=== PATIENT | female | born 1950 | race Caucasian/White ===

== ENCOUNTER 2018-11-04 07:03 | Day surgery (SDC) | payer OTHER ==
--- OUTSIDE RECORDS SUMMARY | 2018-11-04 07:08 | XMS REPORT ---
:1950 Author Organization [employer] Care Team Providers Name Role Phone Tani Franco Provider Role Unavailable Allergies, Adverse Reactions, Alerts Substance Reaction Event Type penicillin Info Not Available Drug Allergy Tetracycline HCl Info Not Available Drug Allergy Problems Problem Type Condition Code Onset Dates Condition Status Assessment Well woman exam Z01.419 Active Assessment Encounter for gynecological Z01.419 Active examination without abnormal finding Assessment Encounter for screening mammogram Z12.31 Active for breast cancer Medications Medication Code System Code Instructions Start Date End Date Status Dosage Lisinopril [facility] [id number] Active not defined -01 Results Name Result Date Reference Range Unit Abnormality Flag URINALYSIS AUTO W/O SCOPE (92683) ----NIT Neg 20180101 ----URO 0.2 20180101 ----PROTEIN Neg 20180101 ----pH 7.0 20180101 ----BLO Neg 20180101 ----GLUCOSE Neg 20180101 ----LALY Neg 20180101 ----BILIRUBIN Neg 20180101 ----KETONES Neg 20180101 ----SPECIFIC GRAVITY 1.020 20180101 Summary Purpose eClinicalWorks Submission
[2018-11-04] MEDS ORDERED: CYCLOPENTOLATE 1% OPTH 2 ML ONE (07:26)
[2018-11-04] MEDS ORDERED: BUPIVACAINE 0.25% PF 10 ML VIAL ONE (07:26)
[2018-11-04] MEDS ORDERED: LIDOCAINE 2% MPF 5 ML VIAL ONE ×2 (07:26→08:30)
[2018-11-04] MEDS ORDERED: NA CHLORIDE 0.9% 500 ML ONE (07:27)
[2018-11-04] MEDS ORDERED: TETRACAINE HCL 0.5% 4ML OPTH ONE (07:27)
[2018-11-04] MEDS ORDERED: PHENYLEPHRINE 10% OPTH 5ML ONE (07:27)
[2018-11-04] MEDS ORDERED: CYCLOPENTOLATE 1% OPTH 2 ML OPTH ONE ×2 (07:33→07:38)
[2018-11-04] MEDS ORDERED: PHENYLEPHRINE 10% OPTH 5ML OPTH ONE ×2 (07:33→07:38)
[2018-11-04] MEDS ORDERED: EPINEPHRINE/PF 1 MG/ML AMP ONE (08:17)
[2018-11-04] MEDS ORDERED: NS 0.9% VIAL 10 ML ONE (08:17)
[2018-11-04] MEDS ORDERED: DUOVISC 1 KIT OPTH ONE (08:18)
[2018-11-04] MEDS ORDERED: MOXIFLOXACIN HCL 10 DROPS/ML **OR USE OPTH ONE (08:18)
[2018-11-04] MEDS ORDERED: BALANCED SALT IRRIG PLAIN 500 ML BTL IRR ONE (08:18)
[2018-11-04] MEDS ORDERED: PROPOFOL 200 MG/20 ML VIAL IV ONE (08:30)
--- NOTE | 2018-11-04 09:07 | P.BOP ---
Preoperative diagnosis: NS, cortical, PSC cataract and regular astigmatism OD Postoperative diagnosis: Same Primary procedure: Phacoemulsification with Toric IOL OD Estimated blood loss: None Anesthesia: Local (Subtenon's infusion with anesthesia for cataract surgery) Complications: None Implants: [id number] +21.0 @ 156 Transferred to: Other (Day surgery) Condition: Good
--- NOTE | 2018-11-04 12:00 | OP ---
Date of Procedure: 11/04/2018 Surgeon: Margarita Burton MD Anesthesiologist: Britt Mccabe CRNA and Ismael Jara MD. Preoperative Diagnosis: Nuclear sclerotic, cortical and posterior subcapsular cataract and regular astigmatism OD (right eye). Operation Performed: Phacoemulsification with Toric intraocular lens implant, right eye. Anesthesia: Per cataract surgery. Complications: None. Description Of Procedure: In day surgery, the patient was prepped with Betadine and draped. A conjunctival incision was made in the inferior nasal quadrant with Adrián scissors. A sub-Tenon block consisting of a 1:1 mixture of 2% Xylocaine and 0.25% bupivacaine was placed through the conjunctival incision with a blunt cannula. A Honan balloon was placed over the eye and the patient was transferred to the operating room. In the operating room the patient was prepped and draped in the usual sterile fashion for ophthalmic surgery. A lid speculum was placed in the right eye. Two paracentesis sites were made superiorly and inferiorly in the limbal cornea. Viscoat was placed in the anterior chamber and a crescent blade was used to make a corneal groove and tunnel, and a keratome was used to enter the anterior chamber. Provisc was placed in the anterior chamber and a 360 degree capsulotomy was performed with a cystitome. The lens was hydrodissected with BSS and rotated freely. The lens was removed with a stop and chop technique. 9.28 phaco CDE was used to remove the lens. Residual cortex was removed with the irrigation and aspiration. Provisc was placed in the capsular bag. A [id number] +21.0 at 156 degrees lens was placed in the capsular bag without complications. Irrigation and aspiration was used to remove residual viscoelastic. The paracentesis sites were hydrated with BSS. The wound and paracentesis sites were inspected and found to be watertight. Vigamox 0.07 cc was placed intracamerally at the end of the procedure. The eye was irrigated with balanced salt solution. The eye was patched with a soft cotton patch and Rosa metal shield. The patient was returned to day surgery in good condition. Comments: The lens was slightly loose and a conjunctiva incision was made temporally due to ballooning of anesthesia. Discharge Instructions: Ms. Arguello is discharged to home in good condition and is to follow up with Dr. Leidlein in the morning. VANDANA/HENRY Voice ID: [id number] Report ID: [id number] LONNY
== END 2018-11-04 09:51 | disposition home or self-care (01) ==
LOC: OR 07:03
PROVIDERS: ATTEND Ophthalmology Retina Specialist
PROC: 08RJ3JZ Replacement of Right Lens with Synthetic Substitute, Percutaneous Approach (ICD-10-PCS; principal; 2018-11-04 08:30)
DX: H25.11 Age-related nuclear cataract, right eye (principal); H25.041 Posterior subcapsular polar age-related cataract, right eye; H25.011 Cortical age-related cataract, right eye; H52.221 Regular astigmatism, right eye; E11.319 Type 2 diabetes mellitus with unspecified diabetic retinopathy without macular edema; I10 Essential (primary) hypertension; E07.9 Disorder of thyroid, unspecified; Z88.0 Allergy status to penicillin; Z88.1 Allergy status to other antibiotic agents; Z88.6 Allergy status to analgesic agent
CPT/HCPCS: 82962 ×2; 66984; J2704; J0171; V2630; V2787

== ENCOUNTER 2023-04-08 10:15 | Emergency (ER) | payer OTHER ==
--- OUTSIDE RECORDS SUMMARY | 2023-04-08 10:19 | XMS REPORT | Continuity of Care Document ---
:1950 Author Organization [facility] t Address [address] [facility] [place] [address] Care Team Providers Name Role Phone Dandy Gardner Attending Clinician Unavailable Jannette Attending Clinician Unavailable Twyla Attending Clinician Unavailable FOG_A_Provider Attending Clinician Unavailable Lula Chapman Attending Clinician Unavailable Jannette Admitting Clinician Unavailable Twyla Admitting Clinician Unavailable FOG_A_Provider Admitting Clinician Unavailable UNDEFINED Admitting Clinician Unavailable Payers Payer Name Policy Type Policy Number Effective Date Expiration Date Stephanie saravanan SANIYA (MEDICARE [id number] 2022 REPLACEMENT PPO) 00:00:00 MEDICARE B-[place]: [id number] 2014 [employer]AS [employer]IONS 00:00:00 AETNA [id number] 2000 2022 00:00:00 00:00:00 COVID VACCINE ADMIN [id number] 2020-06-28 / TESTING 00:00:00 MEDICARE-PA [id number] 2014-11-02 (MEDICARE) 00:00:00 Problems Condition Condition Condition Status Onset Resolution Last Treating Co mments Source Name Details Category Date Date Treatment Clinician Date Proliferat Proliferat Problem Active 2023-0 [facility] tam tam 6-02 Family retinopath Retinopath 00:00: Pr actic y y 00 e Senile Senile Problem Active [facility] purpura Purpura 2-21 Family 00:00: Practic 00 e Osteoarthr Osteoarthr Problem Active [facility] [place] it[facility] of itis of 2-10 Orthope left knee Left Knee 00:00: dic joint Joint 00 Sports Medicin e 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 [facility] rative rative 00:00: Practic retinopath Retinopath 00 e y due to y Due to diabetes Diabetes mellitus Mellitus Macular Macular Problem Active [facility] edema of Edema of 8-02 Family left eye Left Eye 00:00: Practi c due to Due to 00 e diabetes Diabetes mellitus Mellitus Syncope Syncope Problem Active [facility] 2-18 Family 00:00: Practic 00 e Body mass Body Mass Problem Active Ganesh preston index Index 2-18 Family 20-24 - 20-24 - 00:00: Practic normal Normal 00 e Dysuria Dysuria Problem Active 2020-06 [facility] 0-13 Family 00:00: Practic 00 e Type 2 Type 2 Problem Active [facility] diabetes Diabetes 7-20 Family mellitus Mellitus 00:00: Practi c 00 e Leukopenia Leukopenia Problem Active [facility] 7-11 Family 00:00: Practic 00 e Secondary Secondary Problem Active Ganesh preston polycythem Polycythem 7-11 [facility] ia ia 00:00: Practic 00 e Hypoglycem Hypoglycem Problem Active [facility] ia ia 4-16 Family 00:00: Practic 00 e Overweight Overweight Problem Active [facility] 4-17 Family 00:00: Practic 00 e Hypothyroi Hypothyroi Problem Active [facility] dism dism 1-11 Family 00:00: Practic 00 e Hyperlipid Hyperlipid Problem Active [facility] emia emia 1-11 Family 00:00: Practic 00 e Essential Essential Problem Active Ganesh preston hypertensi Hypertensi 1-11 [facility] on on 00:00: Practic 00 e Vitamin Vitamin Problem Active [facility] deficiency Deficiency 1-11 [facility] 00:00: Practic 00 e Hypertensi Hypertensi Problem Active [facility] ve ve 1-11 Family disorder Disorder 00:00: Practi c 00 e Encounter Encounter Diagnosis [facility] tayler tayler examinatio examinatio [facility] n without n without Medi tayler abnormal abnormal Center finding finding Encounter Encounter Diagnosis Active [facility] screening screening - [facility] I mammogram mammogram for breast for breast [facility] cancer cancer [facility] Allergies, Adverse Reactions, Alerts Allergy Allergy Status Severity Reaction(s) Onset Inactive Treating Comm ents Source Name Type Date Date Clinician Penicill DA Active U 2020-0 [facility] ins 5-24 Clear 00:00: Nur 00 [facility] Tetracyc DA Active U 2020-0 [facility] lines 5-24 Clear 00:00: Nur 00 [facility] codeine DA Active SV 2020-0 [facility] 5-24 Clear 00:00: Nur 00 [facility] Penicill DA Active U RASH 2020-0 [facility] ins 5-24 [place] 00:00: d [address] [facility] Tetracyc DA Active U HIVES 2020-0 [facility] lines 5-24 [place] 00:00: d [address] [facility] codeine DA Active SV NAUSEA/VOMIT 2020-0 [facility] ING 5-24 [place] 00:00: d [address] [facility] penicill Adverse Active Info Not Commo n in Reaction Available [facility] Tetracyc Adverse Active Info Not Commo n line HCl Reaction Available [facility] Codeine Allergy Active [facility] to Family substanc Practic e e PENICILL Allergy Active Anaphylaxis [facility] INS to Family substanc Practic e e Tetracyc Allergy Active Anaphylaxis [facility] line to Family substanc Practic e e Social History Social Habit Start Date Stop Date Quantity Comments Source Sex Ass[birth year] At [birth year] [facility] 00:00:00 00:00:[address] [facility] Smoking Status Start Date Stop Date Source Never Smoker [facility] Medications Ordered Filled Start Stop Current Ordering Indication Dosage Frequency Signature Comments Components Source Medication Medication Date Date Medication? Clinician (SIG) Name Name Lisinopril Lisinopril Yes Tani not Common Rekhi defined [facility] Accu-Chek Accu-Chek No 2strip( Q1D Accu-Chek [facility] Guide test Guide test s) Guide test Family strips Take strips Take strips Practic 2 strips 2 strips Take 2 e every day every day strips by miscell. by miscell. every day route for route for by 90 days. 90 days. miscell. route for 90 days. calcium calcium No calcium [facility] Co Q-10 100 Co Q-10 100 No Co Q-10 [facility] mg capsule mg capsule 100 mg F amily Take by Take by capsule Practi c oral route. oral route. Take by e oral route. desonide desonide No desonide Ganesh mohan 0.05 % 0.05 % 0.05 % Family topical topical topical Practi c ointment ointment ointment e APPLY APPLY APPLY SPARINGLY SPARINGLY SPARINGLY AND RUB AND RUB AND RUB GENTLY INTO GENTLY INTO GENTLY THE THE INTO THE AFFECTED AFFECTED AFFECTED AREA(S) BY AREA(S) BY AREA(S) BY TOPICAL TOPICAL TOPICAL ROUTE 2 ROUTE 2 ROUTE 2 TIMES PER TIMES PER TIMES PER DAY DAY DAY Dexcom G6 Dexcom G6 No Dexcom G6 [facility] Sensor Sensor Sensor Family Practic e estradiol estradiol No estradiol [facility] 0.01% (0.1 0.01% (0.1 0.01% (0.1 Family mg/gram) mg/gram) mg/gram) Pra ctic vaginal vaginal vaginal e cream cream cream hydrocodone hydrocodone No hydrocodon [facility] 5 5 e 5 Family mg-acetamin mg-acetamin mg-acetami Practic ophen 325 ophen 325 nophen 325 e mg tablet mg tablet mg tablet TAKE 1 TO 2 TAKE 1 TO 2 TAKE 1 TO TABLETS BY TABLETS BY 2 TABLETS MOUTH EVERY MOUTH EVERY BY MOUTH 6 HOURS FOR 6 HOURS FOR EVERY 6 PAIN. MAX PAIN. MAX HOURS FOR DOSE OF 6 DOSE OF 6 PAIN. MAX TABLETS TABLETS DOSE OF 6 TABLETS levothyroxi levothyroxi levothyrox [facility] ne 75 mcg ne 75 mcg ine 75 mcg Family tablet TAKE tablet TAKE tablet Practic 1 TABLET BY 1 TABLET BY TAKE 1 e MOUTH EVERY MOUTH EVERY TABLET BY DAY DAY MOUTH EVERY DAY pravastatin pravastatin No pravastati [facility] 40 mg 40 mg n 40 mg Family tablet TAKE tablet TAKE tablet Practic 1 TABLET BY 1 TABLET BY TAKE 1 e MOUTH MOUTH TABLET BY EVERYDAY AT EVERYDAY AT MOUTH BEDTIME BEDTIME EVERYDAY AT BEDTIME repaglinide repaglinide No 1 TID repaglinid [facility] 1 mg tablet 1 mg tablet e 1 mg Family Take 1 Take 1 tablet Practic tablet 3 tablet 3 Take 1 e times a day times a day tablet 3 by oral by oral times a route for route for day by 30 days. 30 days. oral route for 30 days. Sutab Sutab No Sutab [facility] 1.479-0.188 1.479-0.188 1.479-0.18 Family -0.225 gram -0.225 gram 8-0.225 Practic tablet tablet gram e tablet Trijardy XR Trijardy XR No Trijardy [facility] 25 mg-5 25 mg-5 XR 25 mg-5 Fam cynthia mg-1,000 mg mg-1,000 mg mg-1,000 Practic tablet, tablet, mg tablet, e extended extended extended release release release TAKE 1 TAKE 1 TAKE 1 TABLET BY TABLET BY TABLET BY MOUTH EVERY MOUTH EVERY MOUTH DAY IN THE DAY IN THE EVERY DAY MORNING MORNING IN THE MORNING Trulicity Trulicity No ulicity [facility] 0.75 mg/0.5 0.75 mg/0.5 0.75 F amily mL mL mg/0.5 mL Practic subcutaneou subcutaneou subcutaneo e s pen s pen us pen injector injector injector INJECT INJECT INJECT 0.75MG 0.75MG 0.75MG SUBCUTANEOU SUBCUTANEOU SUBCUTANEO SLY ONE SLY ONE USLY ONE TIME PER TIME PER TIME PER WEEK WEEK WEEK Vascepa 1 Vascepa 1 No Vascepa 1 Village gram gram gram Family capsule capsule capsule Practi c TAKE 2 TAKE 2 TAKE 2 e CAPSULES BY CAPSULES BY CAPSULES MOUTH TWICE MOUTH TWICE BY MOUTH A DAY A DAY TWICE A DAY Yuvafem 10 Yuvafem 10 No Yuvafem 10 [facility] mcg vaginal mcg vaginal mcg F amily tablet USE tablet USE vaginal Practic 1 TABLET 1 TABLET tablet USE e VAGINALLY VAGINALLY 1 TABLET TWICE TWICE VAGINALLY WEEKLY WEEKLY TWICE WEEKLY Accu-Chek Accu-Chek No 2strip( Q1D AccuChek [facility] Guide test Guide test s) Guide test Family strips Take strips Take strips Practic 2 strips 2 strips Take 2 e every day every day strips by miscell. by miscell. every day route for route for by 90 days. 90 days. miscell. route for 90 days. Accu-Chek Accu-Chek No Accu-Chek [facility] Softclix Softclix Softclix Fam cynthia Lancets USE Lancets USE Lancets Practic DIRECTED DIRECTED USE e TWICE A DAY TWICE A DAY DIRECTED TWICE A DAY calcium calcium No calcium [facility] Family Practic e Co Q-10 100 Co Q-10 100 No Co Q-10 [facility] mg capsule mg capsule 100 mg F amily Take by Take by capsule Practi c oral route. oral route. Take by e oral route. desonide desonide No desonide Ganesh mohan 0.05 % 0.05 % 0.05 % [facility] topical topical topical Practi c ointment ointment ointment e APPLY TO APPLY TO APPLY TO AFFECTED AFFECTED AFFECTED AREAS FOR AREAS FOR AREAS FOR SHORT SHORT SHORT PERIODS PERIODS PERIODS (STEROID) (STEROID) (STEROID) Dexcom G6 Dexcom G6 No Dexcom G6 [facility] Sensor Sensor Sensor Family Practic e estradiol estradiol No estradiol [facility] 0.01% (0.1 0.01% (0.1 0.01% (0.1 Family mg/gram) mg/gram) mg/gram) Pra ctic vaginal vaginal vaginal e cream cream cream hydrocodone hydrocodone No hydrocodon [facility] 5 5 e 5 Family mg-acetamin mg-acetamin mg-acetami Practic ophen 325 ophen 325 nophen 325 e mg tablet mg tablet mg tablet TAKE 1 TO 2 TAKE 1 TO 2 TAKE 1 TO TABLETS BY TABLETS BY 2 TABLETS MOUTH EVERY MOUTH EVERY BY MOUTH 6 HOURS FOR 6 HOURS FOR EVERY 6 PAIN. MAX PAIN. MAX HOURS FOR DOSE OF 6 DOSE OF 6 PAIN. MAX TABLETS TABLETS DOSE OF 6 TABLETS Angelic At[place] No Lyumbernardov [facility] KwikPen KwtaniaPen KwikPen Family U-100 U-100 U-100 Practic Insulin 100 Insulin 100 Insulin e unit/mL unit/mL 100 subcutaneou subcutaneou unit/mL s Give s Give subcutaneo before before us Give meals for meals for before glucose glucose meals for >200 using >200 using glucose CF 1:40; CF 1:40; >200 using TDD 30 TDD 30 CF 1:40; TDD 30 meloxicam meloxicam meloxicam [facility] 7.5 mg 7.5 mg 7.5 mg Family tablet TAKE tablet TAKE tablet Practic 1 TABLET BY 1 TABLET BY TAKE 1 e MOUTH TWICE MOUTH TWICE TABLET BY DAILY WITH DAILY WITH MOUTH MEALS FOR MEALS FOR TWICE 14 DAYS 14 DAYS DAILY WITH MEALS FOR 14 DAYS pravastatin [facility]ravastatin [facility] 40 [facility] 40 mg n 40 mg Family tablet TAKE tablet TAKE tablet Practic 1 TABLET BY 1 TABLET BY TAKE 1 e MOUTH MOUTH TABLET BY EVERYDAY AT EVERYDAY AT MOUTH BEDTIME BEDTIME EVERYDAY AT BEDTIME repaglinide repaglinide No 1 TID repaglinid [facility] 1 mg tablet 1 mg tablet e 1 mg Family Take 1 Take 1 tablet Practic tablet 3 tablet 3 Take 1 e times a day times a day tablet 3 by oral by oral times a route for route for day by 90 days. 90 days. oral route for 90 days. Sutab Sutab No Sutab [facility] 1.479-0.188 1.479-0.188 1.479-0.18 Family -0.225 gram -0.225 gram 8-0.225 Practic tablet tablet gram e tablet Synthroid Synthroid No Synthroid [facility] 75 mcg 75 mcg 75 mcg Family tablet TAKE tablet TAKE tablet Practic 1 TABLET BY 1 TABLET BY TAKE 1 e MOUTH EVERY MOUTH EVERY TABLET BY DAY IN THE DAY IN THE MOUTH MORNING ON MORNING ON EVERY DAY AN EMPTY AN EMPTY IN THE STOMACH STOMACH MORNING ON AN EMPTY STOMACH Trijardy XR Trijardy XR No [facility] 25 mg-5 25 mg-5 XR 25 mg-5 Fam cynthia mg-1,000 mg mg-1,000 mg mg-1,000 Practic tablet, tablet, mg tablet, e extended extended extended release release release TAKE 1 TAKE 1 TAKE 1 TABLET BY TABLET BY TABLET BY MOUTH EVERY MOUTH EVERY MOUTH DAY IN THE DAY IN THE EVERY DAY MORNING MORNING IN THE MORNING Trulicity Trulicity No 1.5mg Q1W Trulicity [facility] 1.5 mg/0.5 1.5 mg/0.5 1.5 mg/0.5 Family mL mL mL Practic subcutaneou subcutaneou subcutaneo e s pen s pen us pen injector injector injector Inject 1.5 Inject 1.5 Inject 1.5 mg every mg every mg every week by week by week by subcutaneou subcutaneou subcutaneo s route for s route for us route 90 days. 90 days. for 90 days. Vascepa 1 Vascepa 1 No Vascepa 1 [facility] gram gram gram Family capsule capsule capsule Practi c TAKE 2 TAKE 2 TAKE 2 e CAPSULES BY CAPSULES BY CAPSULES MOUTH TWICE MOUTH TWICE BY MOUTH A DAY A DAY TWICE A DAY Yuvafem 10 Yuvafem 10 No Yuvafem 10 [facility] mcg vaginal mcg vaginal mcg F amily tablet USE tablet USE vaginal Practic 1 TABLET 1 TABLET tablet USE e VAGINALLY VAGINALLY 1 TABLET TWICE TWICE VAGINALLY WEEKLY WEEKLY TWICE WEEKLY Accu-Chek Accu-Chek No 2strip( Q1D Accu-Chek [facility] Guide test Guide test s) Guide test Family strips Take strips Take strips Practic 2 strips 2 strips Take 2 e every day every day strips by miscell. by miscell. every day route for route for by 90 days. 90 days. miscell. route for 90 days. Accu-Chek Accu-Chek No Accu-Chek [facility] Softclix Softclix Softclix Fam cynthia Lancets USE Lancets USE Lancets Practic DIRECTED DIRECTED USE e TWICE A DAY TWICE A DAY DIRECTED TWICE A DAY calcium calcium No calcium [facility] Co Q-10 100 Co Q-10 100 No Co Q-10 [facility] mg capsule mg capsule 100 mg F amily Take by Take by capsule Practi c oral route. oral route. Take by e oral route. desonide desonide No desonide Ganesh mohan 0.05 % 0.05 % 0.05 % [facility] topical topical topical Practi c ointment ointment ointment e APPLY TO APPLY TO APPLY TO AFFECTED AFFECTED AFFECTED AREAS FOR AREAS FOR AREAS FOR SHORT SHORT SHORT PERIODS PERIODS PERIODS (STEROID) (STEROID) (STEROID) Dexcom G6 Dexcom G6 No Dexcom G6 [facility] Sensor Sensor Sensor Family Practic e estradiol estradiol No estradiol [facility] 0.01% (0.1 0.01% (0.1 0.01% (0.1 Family mg/gram) mg/gram) mg/gram) Pra ctic vaginal vaginal vaginal e cream cream cream hydrocodone hydrocodone No hydrocodon [facility] 5 5 e 5 Family mg-acetamin mg-acetamin mg-acetami Practic ophen 325 ophen 325 nophen 325 e mg tablet mg tablet mg tablet TAKE 1 TO 2 TAKE 1 TO 2 TAKE 1 TO TABLETS BY TABLETS BY 2 TABLETS MOUTH EVERY MOUTH EVERY BY MOUTH 6 HOURS FOR 6 HOURS FOR EVERY 6 PAIN. MAX PAIN. MAX HOURS FOR DOSE OF 6 DOSE OF 6 PAIN. MAX TABLETS TABLETS DOSE OF 6 TABLETS Lyumjev Lyumjev No Lyumjev Villag e Farzad Panda Family U-100 U-100 U-100 Practic Insulin 100 Insulin 100 Insulin e unit/mL unit/mL 100 subcutaneou subcutaneou unit/mL s CAR STORER s CAR STORER subcutaneo BEFORE BEFORE us CAR STORER MEALS FOR MEALS FOR BEFORE GLUCOSE GLUCOSE MEALS FOR GREATER GREATER GLUCOSE THAN 200. THAN 200. GREATER MAX 30 MAX 30 THAN 200. UNITS PER UNITS PER MAX 30 DAY. DAY. UNITS PER DAY. meloxicam meloxicam meloxicam [facility] 7.5 mg 7.5 mg 7.5 mg Family tablet TAKE tablet TAKE tablet Practic 1 TABLET BY 1 TABLET BY TAKE 1 e MOUTH TWICE MOUTH TWICE TABLET BY DAILY WITH DAILY WITH MOUTH MEALS FOR MEALS FOR TWICE 14 DAYS 14 DAYS DAILY WITH MEALS FOR 14 DAYS [facility]ravastatin [facility] 40 mg n 40 mg Family tablet TAKE tablet TAKE tablet Practic 1 TABLET BY 1 TABLET BY TAKE 1 e MOUTH MOUTH TABLET BY EVERYDAY AT EVERYDAY AT MOUTH BEDTIME BEDTIME EVERYDAY AT BEDTIME repaglinide repaglinide No 1 TID repaglinid [facility] 1 mg tablet 1 mg tablet e 1 mg Family Take 1 Take 1 tablet Practic tablet 3 tablet 3 Take 1 e times a day times a day tablet 3 by oral by oral times a route for route for day by 90 days. 90 days. oral route for 90 days. Sutab Sutab Sutab [facility] 1.479-0.188 1.479-0.188 1.479-0.18 Family -0.225 gram -0.225 gram 8-0.225 Practic tablet tablet gram e tablet Synthroid Synthroid Synthroid [facility] 75 mcg 75 mcg 75 mcg Family tablet TAKE tablet TAKE tablet Practic 1 TABLET BY 1 TABLET BY TAKE 1 e MOUTH EVERY MOUTH EVERY TABLET BY DAY IN THE DAY IN THE MOUTH MORNING ON MORNING ON EVERY DAY AN EMPTY AN EMPTY IN THE STOMACH STOMACH MORNING ON AN EMPTY STOMACH Trijardy XR Trijardy XR Trijardy [facility] 25 mg-5 25 mg-5 XR 25 mg-5 Fam cynthia mg-1,000 mg mg-1,000 mg mg-1,000 Practic tablet, tablet, mg tablet, e extended extended extended release release release TAKE 1 TAKE 1 TAKE 1 TABLET BY TABLET BY TABLET BY MOUTH EVERY MOUTH EVERY MOUTH DAY IN THE DAY IN THE EVERY DAY MORNING MORNING IN THE MORNING Trulicity Trulicity No 1.5mg Q1W Trulicity [facility] 1.5 mg/0.5 1.5 mg/0.5 1.5 mg/0.5 [facility] mL mL mL Practic subcutaneou subcutaneou subcutaneo e s pen s pen us pen injector injector injector Inject 1.5 Inject 1.5 Inject 1.5 mg every mg every mg every week by week by week by subcutaneou subcutaneou subcutaneo s route for s route for us route 90 days. 90 days. for 90 days. Vascepa 1 Vascepa 1 No Vascepa 1 [facility] gram gram gram Family capsule capsule capsule Practi c TAKE 2 TAKE 2 TAKE 2 e CAPSULES BY CAPSULES BY CAPSULES MOUTH TWICE MOUTH TWICE BY MOUTH A DAY A DAY TWICE A DAY Yuvafem 10 Yuvafem 10 No Yuvafem 10 [facility] mcg vaginal mcg vaginal mcg F amily tablet USE tablet USE vaginal Practic 1 TABLET 1 TABLET tablet USE e VAGINALLY VAGINALLY 1 TABLET TWICE TWICE VAGINALLY WEEKLY WEEKLY TWICE WEEKLY Accu-Chek Accu-Chek No Accu-Chek [facility] Guide test Guide test Guide test Family strips USE strips USE strips USE Practic 2 STRIPS 2 STRIPS 2 STRIPS e EVERY DAY EVERY DAY EVERY DAY BY MISCELL BY MISCELL BY MISCELL ROUTE ROUTE ROUTE Accu-Chek Accu-Chek No Accu-Chek [facility] Softclix Softclix Softclix Fam cynthia Lancets USE Lancets USE Lancets Practic TWICE DAILY TWICE DAILY USE TWICE e DAILY DIRECTED. DIRECTED. DIRECTED. calcium calcium No calcium [facility] Co Q-10 100 Co Q-10 100 No Co Q-10 [facility] mg capsule mg capsule 100 mg F amily Take by Take by capsule Practi c oral route. oral route. Take by e oral route. desonide desonide No desonide Ganesh mohan 0.05 % 0.05 % 0.05 % [facility] topical topical topical Practi c ointment ointment ointment e APPLY TO APPLY TO APPLY TO AFFECTED AFFECTED AFFECTED AREAS FOR AREAS FOR AREAS FOR SHORT SHORT SHORT PERIODS PERIODS PERIODS (STEROID) (STEROID) (STEROID) Dexcom G6 Dexcom G6 No Dexcom G6 [facility] Sensor Sensor Sensor Family Practic e estradiol estradiol No estradiol [facility] 0.01% (0.1 0.01% (0.1 0.01% (0.1 Family mg/gram) mg/gram) mg/gram) Pra ctic vaginal vaginal vaginal e cream cream cream hydrocodone hydrocodone No hydrocodon [facility] 5 5 e 5 Family mg-acetamin mg-acetamin mg-acetami Practic ophen 325 ophen 325 nophen 325 e mg tablet mg tablet mg tablet TAKE 1 TO 2 TAKE 1 TO 2 TAKE 1 TO TABLETS BY TABLETS BY 2 TABLETS MOUTH EVERY MOUTH EVERY BY MOUTH 6 HOURS FOR 6 HOURS FOR EVERY 6 PAIN. MAX PAIN. MAX HOURS FOR DOSE OF 6 DOSE OF 6 PAIN. MAX TABLETS TABLETS DOSE OF 6 TABLETS meloxicam meloxicam meloxicam [facility] 7.5 mg 7.5 mg 7.5 mg Family tablet TAKE tablet TAKE tablet Practic 1 TABLET BY 1 TABLET BY TAKE 1 e MOUTH TWICE MOUTH TWICE TABLET BY DAILY WITH DAILY WITH MOUTH MEALS FOR MEALS FOR TWICE 14 DAYS 14 DAYS DAILY WITH MEALS FOR 14 DAYS nystatin-tr nystatin-tr No nystatin-t [facility] 100,000 100,000 ne 100,000 Pra ctic unit/g-0.1 unit/g-0.1 unit/g-0.1 e % topical % topical % topical cream APPLY cream APPLY cream RECTALLY TO RECTALLY TO APPLY THE THE RECTALLY AFFECTED AFFECTED TO THE AREA TWICE AREA TWICE AFFECTED DAILY FOR DAILY FOR AREA TWICE 10 DAYS 10 DAYS DAILY FOR 10 DAYS pravastatin pravastatin [facility] 40 mg 40 mg n 40 mg Family tablet TAKE tablet TAKE tablet Practic 1 TABLET BY 1 TABLET BY TAKE 1 e MOUTH MOUTH TABLET BY EVERYDAY AT EVERYDAY AT MOUTH BEDTIME BEDTIME EVERYDAY AT BEDTIME Prescriptio Prescriptio [facility] - Renewal n - Renewal on - F amily Renewal Practic e repaglinide repaglinide No 1 TID repaglinid [facility] 1 mg tablet 1 mg tablet e 1 mg Family Take 1 Take 1 tablet Practic tablet 3 tablet 3 Take 1 e times a day times a day tablet 3 by oral by oral times a route for route for day by 90 days. 90 days. oral route for 90 days. Sutab Sutab No Sutab [facility] 1.479-0.188 1.479-0.188 1.479-0.18 Family -0.225 gram -0.225 gram 8-0.225 Practic tablet tablet gram e tablet Synthroid Synthroid No Synthroid [place] 75 mcg 75 mcg 75 mcg Family tablet TAKE tablet TAKE tablet Practic 1 TABLET BY 1 TABLET BY TAKE 1 e MOUTH EVERY MOUTH EVERY TABLET BY DAY IN THE DAY IN THE MOUTH MORNING ON MORNING ON EVERY DAY AN EMPTY AN EMPTY IN THE STOMACH STOMACH MORNING ON AN EMPTY STOMACH Trijardy XR Trijardy XR No Trijardy [facility] 25 mg-5 25 mg-5 XR 25 mg-5 Fam cynthia mg-1,000 mg mg-1,000 mg mg-1,000 Practic tablet, tablet, mg tablet, e extended extended extended release release release TAKE 1 TAKE 1 TAKE 1 TABLET BY TABLET BY TABLET BY MOUTH EVERY MOUTH EVERY MOUTH DAY IN THE DAY IN THE EVERY DAY MORNING MORNING IN THE MORNING Trulicity Trulicity No 1.5mg Q1W Trulicity [facility] 1.5 mg/0.5 1.5 mg/0.5 1.5 mg/0.5 Family mL mL mL Practic subcutaneou subcutaneou subcutaneo e s pen s pen us pen injector injector injector Inject 1.5 Inject 1.5 Inject 1.5 mg every mg every mg every week by week by week by subcutaneou subcutaneou subcutaneo s route for s route for us route 90 days. 90 days. for 90 days. Vascepa 1 Vascepa 1 No Vascepa 1 Village gram gram gram Family capsule capsule capsule Practi c TAKE 2 TAKE 2 TAKE 2 e CAPSULES BY CAPSULES BY CAPSULES MOUTH TWICE MOUTH TWICE BY MOUTH A DAY A DAY TWICE A DAY Yuvafem 10 Yuvafem 10 No Yuvafem 10 [facility] mcg vaginal mcg vaginal mcg F amily tablet USE tablet USE vaginal Practic 1 TABLET 1 TABLET tablet USE e VAGINALLY VAGINALLY 1 TABLET TWICE TWICE VAGINALLY WEEKLY WEEKLY TWICE WEEKLY Accu-Chek Accu-Chek No Accu-Chek Sari Guide test Guide test Guide test Orthope strips TAKE strips TAKE strips dic 2 STRIPS 2 STRIPS TAKE 2 Sport s EVERY DAY EVERY DAY STRIPS Med icin BY MISCELL. BY MISCELL. EVERY DAY e ROUTE FOR ROUTE FOR BY 90 DAYS. 90 DAYS. MISCELL. ROUTE FOR 90 DAYS. Accu-Chek Accu-Chek No Accu-Chek Sari Softclix Softclix Softclix Ort hope Lancets USE Lancets USE Lancets dic DIRECTED DIRECTED USE Sports TWICE A DAY TWICE A DAY DIRECTED Medicin TWICE A e DAY desonide desonide No desonide Aza may 0.05 % 0.05 % 0.05 % Orthope topical topical topical dic ointment ointment ointment Spo rts APPLY TO APPLY TO APPLY TO Med icin AFFECTED AFFECTED AFFECTED e AREAS FOR AREAS FOR AREAS FOR SHORT SHORT SHORT PERIODS PERIODS PERIODS (STEROID) (STEROID) (STEROID) meloxicam meloxicam No 1 BID meloxicam Sari 7.5 mg 7.5 mg 7.5 mg Orthope tablet Take tablet Take tablet dic 1 tablet 1 tablet Take 1 Sport s twice a day twice a day tablet Medicin by oral by oral twice a e route with route with day by meals for meals for oral route 14 days. 14 days. with meals for 14 days. pravastatin pravastatin No pravastati Sari 40 mg 40 mg n 40 mg [facility] tablet TAKE tablet TAKE tablet dic 1 TABLET BY 1 TABLET BY TAKE 1 Sports MOUTH MOUTH TABLET BY Medicin EVERYDAY AT EVERYDAY AT MOUTH e BEDTIME BEDTIME EVERYDAY AT BEDTIME repaglinide repaglinide No repaglinid Sari 1 mg tablet 1 mg tablet e 1 mg Orthope TAKE 1 TAKE 1 tablet dic TABLET BY TABLET BY TAKE 1 Spo rts MOUTH THREE MOUTH THREE TABLET BY Medicin TIMES A DAY TIMES A DAY MOUTH e FOR 30 DAYS FOR 30 DAYS THREE TIMES A DAY FOR 30 DAYS Synthroid Synthroid No Synthroid Sari 75 mcg 75 mcg 75 mcg Orth[facility] tablet TAKE tablet TAKE tablet dic 1 TABLET BY 1 TABLET BY TAKE 1 Sports MOUTH EVERY MOUTH EVERY TABLET BY Medicin DAY IN THE DAY IN THE MOUTH e MORNING ON MORNING ON EVERY DAY AN EMPTY AN EMPTY IN THE STOMACH STOMACH MORNING ON AN EMPTY STOMACH Trijardy XR Trijardy XR No Trijardy Sari 25 mg-5 25 mg-5 XR 25 mg-5 Ort hope mg-1,000 mg mg-1,000 mg mg-1,000 dic tablet, tablet, mg tablet, Spo rts extended extended extended Med icin release release release e TAKE 1 TAKE 1 TAKE 1 TABLET BY TABLET BY TABLET BY MOUTH EVERY MOUTH EVERY MOUTH DAY IN THE DAY IN THE EVERY DAY MORNING MORNING IN THE MORNING Trulicity Trulicity No Trulicity Sari 0.75 mg/0.5 0.75 mg/0.5 0.75 O rthope mL mL mg/0.5 mL dic subcutaneou subcutaneou subcutaneo Sports s pen s pen us pen Medicin injector injector injector e INJECT INJECT INJECT 0.75MG 0.75MG 0.75MG SUBCUTANEOU SUBCUTANEOU SUBCUTANEO SLY ONE SLY ONE USLY ONE TIME PER TIME PER TIME PER WEEK WEEK WEEK Vascepa 1 Vascepa 1 No Vascepa 1 Sari gram gram gram Orthope capsule capsule capsule dic TAKE 2 TAKE 2 TAKE 2 Sports CAPSULES BY CAPSULES BY CAPSULES Medicin MOUTH TWICE MOUTH TWICE BY MOUTH e A DAY A DAY TWICE A DAY Yuvafem 10 Yuvafem 10 No Yuvafem 10 Sari mcg vaginal mcg vaginal mcg O rthope tablet USE tablet USE vaginal dic 1 TABLET 1 TABLET tablet USE S ports VAGINALLY VAGINALLY 1 TABLET M edicin TWICE TWICE VAGINALLY e WEEKLY WEEKLY TWICE WEEKLY Immunizations Ordered Filled Immunization Date Status Comments [facility] e Immunization Name Name Non-US Vaccine Non-US Vaccine 2021-03-28 Completed [facility] COVID-19 PS COVID-19 PS 00:00:00 Practice (EpiVacCorona) (EpiVacCorona) Non-US Vaccine Non-US Vaccine 2021-03-28 Completed [facility] COVID-19 PS COVID-19 PS 00:00:00 Practice (EpiVacCorona) (EpiVacCorona) Non-US Vaccine Non-US Vaccine 2021-03-28 Completed [facility] COVID-19 PS COVID-19 PS 00:00:00 Practice (EpiVacCorona) (EpiVacCorona) Non-US Vaccine Non-US Vaccine 2021-03-28 Completed [facility] COVID-19 PS COVID-19 PS 00:00:00 Practice (EpiVacCorona) (EpiVacCorona) COVID-19, mRNA, COVID-19, mRNA, 2020-07-05 Completed [facility] LNP-S, PF, 30 LNP-S, PF, 30 00:00:00 Practice mcg/0.3 mL dose mcg/0.3 mL dose ([employer]) ([employer]) COVID-19, mRNA, COVID-19, mRNA, 2020-07-05 Completed [facility] LNP-S, PF, 30 LNP-S, PF, 30 00:00:00 Practice mcg/0.3 mL dose mcg/0.3 mL dose (Pfizer-BioNTech) (Pfizer-BioNTech) COVID-19, mRNA, COVID-19, mRNA, 2020-07-05 Completed [facility] LNP-S, PF, 30 LNP-S, PF, 30 00:00:00 Practice mcg/0.3 mL dose mcg/0.3 mL dose (Pfizer-BioNTech) (Pfizer-BioNTech) COVID-19, mRNA, COVID-19, mRNA, 2020-07-05 Completed [facility] LNP-S, PF, 30 LNP-S, PF, 30 00:00:00 Practice mcg/0.3 mL dose mcg/0.3 mL dose (Pfizer-BioNTech) (Pfizer-BioNTech) influenza, influenza, 2020-03-11 Completed [facility] Family injectable, injectable, 00:00:00 Practice quadrivalent quadrivalent influenza, influenza, 2020-03-11 Completed [facility] injectable, injectable, 00:00:00 Practice quadrivalent quadrivalent influenza, influenza, 2020-03-11 Completed [facility] injectable, injectable, 00:00:00 Practice quadrivalent quadrivalent influenza, influenza, 2020-03-11 Completed [facility] Family injectable, injectable, 00:00:00 Practice quadrivalent quadrivalent influenza, influenza, 2020-03-07 Completed [facility] injectable, injectable, 00:00:00 Practice quadrivalent quadrivalent influenza, influenza, 2020-03-07 Completed [facility] injectable, injectable, 00:00:00 Practice quadrivalent quadrivalent influenza, influenza, 2020-03-07 Completed [facility] injectable, injectable, 00:00:00 Practice quadrivalent quadrivalent influenza, influenza, 2020-03-07 Completed [facility] injectable, injectable, 00:00:00 Practice quadrivalent quadrivalent Covid-19 Vaccine Unknown Completed [facility] MRNA (PF) 12yr+ Medical C enter (Pfizer/BioNTech)(I MM601) Covid-19 Vaccine Unknown Completed [facility] MRNA (PF) 12yr+ Medical C enter (Pfizer/BioNTech)(I MM601) Covid-19 Vaccine Unknown Completed [facility] MRNA (PF) 12yr+ Medical C enter (Pfizer/BioNTech)(I MM601) Covid-19 Vaccine Unknown Completed [facility] MRNA (PF) 12yr+ Medical C enter (Pfizer/BioNTech)(I MM601) Vital Signs Vital Name Observation Time Observation Value Comments Source BP Diastolic 2023-01-24 00:00:00 70 mm[Hg] [facility] Body Weight 2023-01-24 00:00:00 119 [lb_av] [facility] BP Systolic 2023-01-24 00:00:00 116 mm[Hg] [facility] Height 2023-01-24 00:00:00 62 [in_i] [facility] BMI (Body Mass 2023-01-24 00:00:00 21.8 kg/m2 [facility] Index) Practice BP Diastolic 2022-07-25 00:00:00 74 mm[Hg] [facility] Height 2022-07-25 00:00:00 62 [in_i] [facility] BMI (Body Mass 2022-07-25 00:00:00 21.8 kg/m2 [facility] Practice BP Systolic 2022-07-25 00:00:00 147 mm[Hg] [facility] Body Weight 2022-07-25 00:00:00 119 [lb_av] [facility] Height 2022-07-12 00:00:00 62 [in_i] [facility] BMI (Body Mass 2022-07-12 00:00:00 21 kg/m2 [facility] Index) Sports Medicine Body Weight 2022-07-12 00:00:00 115 [lb_av] [facility] BP Diastolic 2022-01-19 00:00:00 71 mm[Hg] [facility] Height 2022-01-19 00:00:00 62 [in_i] [facility] BMI (Body Mass 2022-01-19 00:00:00 20.7 kg/m2 [facility] BP Systolic 2022-01-19 00:00:00 126 mm[Hg] [facility] Body Weight 2022-01-19 00:00:00 113 [lb_av] [facility] BP Diastolic 2021-10-19 00:00:00 69 mm[Hg] [facility] Height 2021-10-19 00:00:00 62 [in_i] [facility] BMI (Body Mass 2021-10-19 00:00:00 19.9 kg/m2 [facility] BP Systolic 2021-10-19 00:00:00 114 mm[Hg] [facility] Body Weight 2021-10-19 00:00:00 109 [lb_av] [facility] BP Diastolic 2021-07-22 00:00:00 75 mm[Hg] [facility] Height 2021-07-22 00:00:00 62 [in_i] [facility] BMI (Body Mass 2021-07-22 00:00:00 19.8 kg/m2 [facility] BP Systolic 2021-07-22 00:00:00 127 mm[Hg] [facility] Body Weight 2021-07-22 00:00:00 108 [lb_av] [facility] BP Diastolic 2021-04-21 00:00:00 78 mm[Hg] [facility] Height 2021-04-21 00:00:00 62 [in_i] [facility] BMI (Body Mass 2021-04-21 00:00:00 20.1 kg/m2 [facility] BP Systolic 2021-04-21 00:00:00 127 mm[Hg] [facility] Body Weight 2021-04-21 00:00:00 109.8 [lb_av] [facility] BP Diastolic 2021-03-16 00:00:00 71 mm[Hg] [facility] Height 2021-03-16 00:00:00 62 [in_i] [facility] BMI (Body Mass 2021-03-16 00:00:00 20.2 kg/m2 [facility] BP Systolic 2021-03-16 00:00:00 128 mm[Hg] [facility] Body Weight 2021-03-16 00:00:00 110.4 [lb_av] [facility] BP Diastolic 2020-12-21 00:00:00 72 mm[Hg] [facility] Height 2020-12-21 00:00:00 62 [in_i] [facility] BMI (Body Mass 2020-12-21 00:00:00 20.2 kg/m2 [facility] e Family Index) Practice BP Systolic 2020-12-21 00:00:00 129 mm[Hg] [facility] Practice Body Weight 2020-12-21 00:00:00 110.2 [lb_av] [facility] Practice BP Diastolic 2020-09-14 00:00:00 79 mm[Hg] [facility] Practice Height 2020-09-14 00:00:00 62 [in_i] [facility] Practice BMI (Body Mass 2020-09-14 00:00:00 20.1 kg/m2 [facility] e Family Index) Practice BP Systolic 2020-09-14 00:00:00 132 mm[Hg] [facility] Practice Body Weight 2020-09-14 00:00:00 110 [lb_av] [facility] Practice BP Diastolic 2020-06-16 00:00:00 70 mm[Hg] [facility] Practice Height 2020-06-16 00:00:00 62 [in_i] [facility] Practice BMI (Body Mass 2020-06-16 00:00:00 22.3 kg/m2 [facility] Family Index) Practice BP Systolic 2020-06-16 00:00:00 111 mm[Hg] [facility] Practice Body Weight 2020-06-16 00:00:00 122 [lb_av] [facility] Practice BP Diastolic 2020-03-22 00:00:00 66 mm[Hg] [facility] Practice Height 2020-03-22 00:00:00 62 [in_i] [facility] Practice BMI (Body Mass 2020-03-22 00:00:00 23.1 kg/m2 [facility] Family Index) Practice BP Systolic 2020-03-22 00:00:00 114 mm[Hg] [facility] Practice Body Weight 2020-03-22 00:00:00 126.4 [lb_av] [facility] Practice Procedures Procedure Date / Time Performing Clinician Source Performed XR, knee, 4 or more view 2022-07-12 00:00:00 Taina olvera [facility] Procedure on Uterus 2021-07-10 00:00:00 [facility] Extraction of Cataract 2018-10-02 00:00:00 [facility] Laparoscopic 2014-06-04 00:00:00 [facility] Jasen alan Cholecystectomy Practice Carpal Tunnel Surgery 2008-06-04 00:00:00 [facility] Cardiac Catheterization 2007-06-04 00:00:00 [facility] Gallbladder Surgery [facility] Tonsillectomy [facility] Carpal Tunnel Surgery [facility] Ort hopedic Sports Medicine Plan of Care Planned Activity Planned Date Details Comments Source Future Scheduled Test 2023-02-02 Influenza Vacc[address] [facility] 00:00:00 (#1) [code = Medical Center Influenza Vaccine (#1)] Future Scheduled Test 2023-02-02 Influenza Vacc[address] [facility] 00:00:00 (#1) [code = Medical Center Influenza Vaccine (#1)] Diagnostic Test 2023-01-24 glucose, fingerstick, [facility] Pending 00:00:00 blood [code = Practice glucose, fingerstick, blood] Diagnostic Test 2023-01-24 hemoglobin A1C, [facility] Pending 00:00:00 fingerstick [code = Practice hemoglobin A1C, fingerstick] Future Scheduled Test 2022-06-[address] [facility] 00:00:00 (12+) [code = Medical Center DEPRESSION SCREENING (12+)] Future Scheduled Test 2022-06-04 FALLS RISK SCREENING [facility] 00:00:00 [code = FALLS RISK Medical C enter SCREENING] Future Scheduled Test 2022-06-[address] [facility] 00:00:00 (12+) [code = Medical Center DEPRESSION SCREENING (12+)] Future Scheduled Test 2022-06-04 FALLS RISK SCREENING [facility] 00:00:00 [code = FALLS RISK Medical C enter SCREENING] Future Scheduled Test 2020-09-23 COVID-19 VACCINE (3 - [facility] 00:00:00 Booster for Pfizer Medical C enter series) [code = COVID-19 VACCINE (3 - Booster for Pfizer series)] Future Scheduled Test 2020-09-23 COVID-19 VACCINE (3 - [facility] 00:00:00 Booster for Pfizer Medical C enter series) [code = COVID-19 VACCINE (3 - Booster for Pfizer series)] Future Scheduled Test 2014 PNEUMOCOCCAL 65+ YRS [facility] 00:00:00 (1 - PCV) [code = Medical nter PNEUMOCOCCAL 65+ YRS (1 - PCV)] Future Scheduled Test 2014 PNEUMOCOCCAL 65+ YRS [facility] 00:00:00 (1 - PCV) [code = Medical Ce nter PNEUMOCOCCAL 65+ YRS (1 - PCV)] Future Scheduled Test 1999-11-14 SHINGLES VACCINES ([address] [facility] 00:00:00 of 2) [code = Medical Center SHINGLES VACCINES (1 of 2)] Future Scheduled Test 1999-11-14 SHINGLES VACCINES ([address] [facility] 00:00:00 of 2) [code = Medical Center SHINGLES VACCINES (1 of 2)] Future Scheduled Test 1968 DTAP/TDAP/TD VACCINES [facility] 00:00:00 (1 - Tdap) [code = Medical C enter DTAP/TDAP/TD VACCINES (1 - Tdap)] Future Scheduled Test 1968 DTAP/TDAP/TD VACCINES [facility] 00:00:00 (1 - Tdap) [code = Medical C enter DTAP/TDAP/TD VACCINES (1 - Tdap)] Future Scheduled Test 1967-11-14 HEPATITIS C SCREENING [facility] 00:00:00 [code = HEPATITIS C Medical Center SCREENING] Future Scheduled Test 1967-11-14 HEPATITIS C SCREENING [facility] 00:00:00 [code = HEPATITIS C Medical Center SCREENING] Future Scheduled Test [address] [facility] 00:00:00 Counseling and Medical Cente r Screening (12+) [code = Tobacco Cessation Counseling and Screening (12+)] Future Scheduled Test [address] [facility] 00:00:00 Counseling and Medical Cente r Screening (12+) [code = Tobacco Cessation Counseling and Screening (12+)] Future Scheduled Test 1949 [facility] malignant neoplasm of Medica l Center breast (procedure) [code = 517866734] Future Scheduled Test [address] [facility] 00:00:00 (combo) [code = CT Medical C enter Colonography (combo)] Future Scheduled Test 1949 [facility] for [facility] 00:00:00 malignant neoplasm of Medica l Center colon (procedure) [code = 145709125] Future Scheduled Test 1949 [facility] for [facility] 00:00:00 malignant neoplasm of Medica l Center colon (procedure) [code = 978533830] Future Scheduled Test 1949 DXA SCAN [code = DXA [facility] 00:00:00 SCAN] [facility] Future Scheduled Test 1949 [facility] for [facility] 00:00:00 malignant neoplasm of Medica l Center colon (procedure) [code = 210019946] Future Scheduled Test 1949 [facility] for [facility] 00:00:00 malignant neoplasm of Medica l Center colon (procedure) [code = 133158043] Future Scheduled Test 1949 Sigmoidoscopy [code = [facility] 00:00:00 Sigm[facility]oscopy] [facility] Future [facility]uled Test 1949 Sigmoidoscopy [code = [facility] 00:00:00 Sigmoidoscopy] Medical Cente r Future Scheduled Test 1949 Screening for [facility] 00:00:00 malignant neoplasm of Medica l Center breast (procedure) [code = 891521045] Future Scheduled Test [address] [facility] 00:00:00 (combo) [code = CT Medical C enter Colonography (combo)] Future Scheduled Test 1949 [facility]ening for [facility] 00:00:00 malignant neoplasm of Medica l Center colon (procedure) [code = 461411812] Future Scheduled Test 1949 [facility] for [facility] 00:00:00 malignant neoplasm of Medica [facility] Center colon (procedure) [code = 130668206] Future Scheduled Test 1949 DXA SCAN [code = DXA [facility] 00:00:00 SCAN] [facility] Future Scheduled Test 1949 [facility] for [facility] 00:00:00 malignant neoplasm of Medica l Center colon (procedure) [code = 994667556] Future Scheduled Test 1949 Screening for [facility] 00:00:00 malignant neoplasm of Medica l Center colon (procedure) [code = 118511699] Future Appointment 2023-07-27 Abiodun Delgado, [id number] [facility] Family 00:00:00 [address]; Practice [address], [place] [address] Future Appointment 2023-07-26 Leny [facility] 13:45:[address]; Practice [address], [place] [address] Instructions [facility] Encounters Start End Encounter Admission Attending Care Care Encounter Source Date/Time Date/Time Type Type Clinicians Facility Department ID 2020-10-07 Inpatient Kendra HCACL HCACL [id number] [facility] 10:19:[address] 2023-03-27 2023-03-27 Outpatient Daniel_T_HO VFP VFP [id number] [facility] 00:00:00 00:00:00 SOL [id number] Family Practic e 2023-01-29 2023-01-29 Outpatient Daniel_T_HO VFP VFP [id number] 00:00:00 00:00:00 SOL [id number] Family Practic e 2023-01-24 2023-01-24 Abiodun VFP [place] - [id number] V illage 00:00:00 00:00:00 [facility] DelgadoLinus - Practi adiel MD: [id number] [place] - [facility] [address], [address], [place] [address] , Ph. 2023-01-21 2023-01-21 Outpatient Daniel_T_HO VFP VFP [id number] [facility] 00:00:00 00:00:00 SOL [id number] Family Practic e 2023-01-21 2023-01-21 Outpatient Daniel_T_HO VFP VFP [id number] 00:00:00 00:00:00 SOL [id number] Family Practic e 2023-01-21 2023-01-21 Outpatient Daniel_T_HO VFP VFP [id number] [facility] 00:00:00 00:00:00 SOL [id number] Family Practic e 2023-01-18 2023-01-18 Outpatient GC_SWHAOMC_ PRIV PRIV [id number] [facility] 00:00:00 00:00:00 Rich [id number] Medic al 2022-12-28 2022-12-28 Outpatient FOG_A_Provi AOSM AOSM [id number] [facility] 00:00:00 00:00:00 mya [id number] Orthop e dic Sports Medicin e 2022-11-06 2022-11-06 Outpatient Daniel_T VFP VFP [id number] [address] [place] [address] 00:00:00 00:00:00 [id number] Family Practic e 2022-10-18 2022-10-18 Outpatient GC_SWHAOMC_ PRIV PRIV [id number] [facility] 00:00:00 00:00:00 Rich [id number] Medic al 2022-10-12 2022-10-12 Outpatient GC_SWHAOMC_ PRIV PRIV [id number] [facility] 00:00:00 00:00:00 Rich [id number] Medic al 2022-10-12 2022-10-12 Outpatient GC_SWHAOMC_ PRIV PRIV [id number] [facility] 00:00:00 00:00:00 Rich [id number] Medic al 2022-10-10 2022-10-10 Outpatient GC_SWHAOMC_ PRIV PRIV [id number] [facility] 00:00:00 00:00:00 Rich [id number] Medic al 2022-10-02 2022-10-02 Outpatient Daniel_T VFP VFP [id number] [address] [place] [address] 00:00:00 00:00:00 [id number] Family Practic e 2022-09-26 2022-09-26 Outpatient GC_SWHAOMC_ PRIV PRIV [id number] [facility] 00:00:00 00:00:00 Rich [id number] Medic al 2022-07-25 2022-07-25 Outpatient Daniel_T VFP VFP [id number] [address] [place] [address] 00:00:00 00:00:00 [id number] Family Practic e 2022-07-25 2022-07-25 Outpatient Daniel_T VFP VFP [id number] [address] [place] [address] 00:00:00 00:00:00 [id number] Family Practic e 2022-07-25 2022-07-25 Outpatient Daniel_T VFP VFP [id number] [address] [place] [address] 00:00:00 00:00:00 [id number] Family Practic e 2022-07-25 2022-07-25 Outpatient Daniel_T VFP VFP [id number] [address] [place] [address] 00:00:00 00:00:00 [id number] Family Practic e 2022-07-25 2022-07-25 Outpatient Daniel_T VFP VFP [id number] [address] [place] [address] 00:00:00 00:00:00 [id number] Family Practic e 2022-07-25 2022-07-25 Outpatient Daniel_T VFP VFP [id number] [address] [place] [address] 00:00:00 00:00:00 [id number] Family Practic e 2022-07-25 2022-07-25 Outpatient Daniel_T VFP VFP [id number] [address] [place] [address] 00:00:00 00:00:00 [id number] Family Practic e 2022-07-25 2022-07-25 Outpatient Daniel_T VFP VFP [id number] [address] [place] [address] 00:00:00 00:00:00 [id number] Family Practic e 2022-07-25 2022-07-25 Abiodun VFP [place] - [id number] V illage 00:00:00 00:00:00 [facility] - Practi adiel CARMEN: [id number] [place] - e Shadow VM_HOU_[facility], [address], [place] [address] , Ph. 2022-07-24 2022-07-24 Outpatient Daniel_T VFP VFP [id number] [address] [place] [address] 00:00:00 00:00:00 [id number] Family Practic e 2022-07-22 2022-07-22 Outpatient FOG_A_Provi AOSM AOSM [id number] [facility] 00:00:00 00:00:00 mya [id number] Orthop e dic Sports Medicin e 2022-07-22 2022-07-22 Outpatient FOG_A_Provi AOSM AOSM [id number] [facility] 00:00:00 00:00:00 mya [id number] Orthop e dic Sports Medicin e 2022-07-22 2022-07-22 Outpatient FOG_A_Provi AOSM AOSM [id number] [facility] 00:00:00 00:00:00 mya [id number] Orthop e dic Sports Medicin e 2022-07-12 2022-07-12 Outpatient FOG_A_Provi AOSM AOSM [id number] [facility] 00:00:00 00:00:00 mya [id number] Orthop e dic Sports Medicin e 2022-07-12 2022-07-12 Vanduser AOSM [place] - Ortho [id number] [facility] 00:00:00 00:00:00 MARTIN Mendez [facility] MD: [id number] FOG_Ofc dic [facility] [place], [place] [address] , Ph. [id number] 2022-07-11 2022-07-11 Outpatient FOG_A_Provi AOSM AOSM [id number] [facility] 00:00:00 00:00:00 mya [id number] Orthop e dic Sports Medicin e 2022-07-05 2022-07-05 Outpatient FOG_A_Provi AOSM AOSM [id number] [facility] 00:00:00 00:00:00 mya [id number] Orthop e dic Sports Medicin e 2022-07-05 2022-07-05 Outpatient FOG_A_Provi AOSM AOSM [id number] [facility] 00:00:00 00:00:00 mya [id number] Orthop e dic Sports Medicin e 2022-06-27 2022-06-27 Outpatient FOG_A_Provi AOSM AOSM [id number] [facility] 00:00:00 00:00:00 mya [id number] Orthop e dic Sports Medicin e 2022-02-02 2022-02-02 Outpatient Daniel_T VFP VFP [id number] [address] [place] [address] 00:00:00 00:00:00 [id number] Family Practic e 2022-02-02 2022-02-02 Outpatient VFP VFP [id number] [place] [address] 00:00:00 00:00:00 [id number] Family Practic e 2022-01-22 2022-01-22 Outpatient Daniel_T VFP VFP [id number] [address] [place] [address] 00:00:00 00:00:00 [id number] Family Practic e 2022-01-19 2022-01-19 Outpatient Daniel_T VFP VFP [id number] [address] [place] [address] 00:00:00 00:00:00 [id number] Family Practic e 2022-01-19 2022-01-19 Abiodun VFP [place] - [id number] V illage 00:00:00 00:00:00 [facility] DelgadoLinus MD: [id number] Darren urmila [address], [place] [address] , Ph. 2021-11-16 2021-11-16 Outpatient Daniel_T VFP VFP [id number] [address] [place] [address] 00:00:00 00:00:00 [id number] Family Practic e 2021-10-19 2021-10-19 Outpatient Daniel_T VFP VFP [id number] [address] [place] [address] 03:53:00 03:53:00 [id number] Family Practic e 2021-10-19 2021-10-19 Abiodun VFP [place] - [id number] V illage 00:00:00 00:00:00 [facility] DelgadoLinus MD: [id number] Darren urmila [address] [address] , Ph. 2021-09-16 2021-09-16 Outpatient Daniel_T VFP VFP [id number] [address] [place] [address] 04:38:00 04:38:00 [id number] Family Practic e 2021-07-26 2021-07-26 Outpatient Daniel_T VFP VFP [id number] [address] [place] [address] 01:40:00 01:40:00 [id number] Family Practic e 2021-07-26 2021-07-26 Outpatient VFP VFP [id number] [address] 01:40:00 01:40:00 [id number] Family Practic e 2021-07-22 2021-07-22 Outpatient Daniel_T VFP VFP [id number] [address] [place] [address] 03:03:00 03:03:00 [id number] Family Practic e 2021-07-22 2021-07-22 Abiodun VFP [place] - [id number] V illage 00:00:00 00:00:00 [facility] Family DelgadoLinus MD: [id number] Darren e [facility], [address], [place] [address] , Ph. 2021-06-09 2021-06-09 Inpatient KIRSTEN Chapman, [facility] DAYS [id number] [facility] 05:37:00 05:37:00 Lula 03 [facility] 2021-05-30 2021-05-30 Outpatient Daniel_T VFP VFP [id number] 20 [facility] 09:22:00 09:22:00 [id number] Family Practic e 2021-05-03 2021-05-03 Outpatient Daniel_T VFP VFP [id number] [facility] 09:11:00 09:11:00 [id number] Family Practic e 2021-05-03 2021-05-03 Outpatient VFP VFP [id number] [facility] [facility] 09[facility]00 09:11:00 [id number] Family Practic e 2021-04-21 2021-04-21 Outpatient Daniel_T VFP VFP [id number] [facility] 12:26:00 12:26:00 [id number] Family Practic e 2021-04-21 2021-04-21 Abiodun VFP [place] - [id number] V illage 00:00:00 00:00:00 Tyrone [facility] Family DelgadoLinus - Amy chun MD: [id number] VM_HOU_Shagwendolyn e [facility], [address], [place] [address] , Ph. 2021-03-23 2021-03-23 Outpatient VFP VFP [id number] 20 [facility] 09:57:00 09:57:00 [id number] Family Practic e 2021-03-23 2021-03-23 Outpatient Daniel_T VFP VFP [id number] [address] [place] [address] 09:57:00 09:57:00 [id number] Family Practic e 2021-03-16 2021-03-16 Outpatient Daniel_T VFP VFP [id number] [facility] 01:02:00 01:02:00 [id number] Family Practic e 2021-03-16 2021-03-16 Abiodun VFP [place] - [id number] V illage 00:00:00 00:00:00 [facility] Family Delgado, Medical - Pracsayra chun MD: [id number] MARIUSZ_RIGOBERTO_Mahamed kearns [facility], [address], [place] [address] , Ph. 2021-01-11 2021-01-11 Outpatient Daniel_T VFP VFP [id number] [address] [place] [address] 03:59:00 03:59:00 [id number] Family Practic e 2021-01-11 2021-01-11 Outpatient Daniel_T VFP VFP [id number] [address] [place] [address] 03:59:00 03:59:00 [id number] Family Practic e 2020-12-27 2020-12-27 Outpatient Daniel_T VFP VFP [id number] [address] [place] [address] 03:08:00 03:08:00 [id number] Family Practic e 2020-12-23 2020-12-23 Outpatient Daniel_T VFP VFP [id number] [address] [place] [address] 07:30:00 07:30:00 [id number] Family Practic e 2020-12-21 2020-12-21 Outpatient Daniel_T VFP VFP [id number] [address] [place] [address] 03:30:00 03:30:00 [id number] Family Practic e 2020-12-21 2020-12-21 Abiodun VFP [place] - [id number] V illage 00:00:00 00:00:00 [facility] Family DelgadoLinus - Pracsayra chun MD: [id number] MARIUSZ_RIGOBERTO_Mahamed kearns [facility], [address], [place] [address] , Ph. 2020-11-11 2020-11-11 Outpatient Daniel_T VFP VFP [id number] [address] [place] [address] 09:02:00 09:02:00 [id number] Family Practic e 2020-10-19 2020-10-19 Outpatient VFP VFP [id number] 20 [facility] 04:21:00 04:21:00 [id number] Family Practic e 2020-09-16 2020-09-16 Outpatient Daniel_T VFP VFP [id number] [address] [place] [address] 04:33:00 04:33:00 [id number] Family Practic e 2020-09-14 2020-09-14 Outpatient Daniel_T VFP VFP [id number] [address] [place] [address] 03:29:00 03:29:00 [id number] Family Practic e 2020-09-14 2020-09-14 Abiodun VFP [place] - [id number] V illage 00:00:00 [facility]:00:00 [facility] Family DelgadoLinus - Amy chun MD: [id number] VM_HOU_Shagwendolyn e [facility], [address] [address] , Ph. 2020-09-13 2020-09-13 Outpatient Daniel_T VFP VFP [id number] [address] [place] [address] 12:08:00 12:08:00 [id number] Family Practic e 2020-08-08 2020-08-08 Outpatient Daniel_T VFP VFP [id number] [address] [place] [address] 01:01:00 01:01:00 [id number] Family Practic e 2020-07-29 2020-07-29 Outpatient EL [facility] [id number] [facility] 00:00:00 00:00:00 2020-07-19 2020-07-19 Outpatient EL [facility] [id number] [facility] 00:00:00 00:00:00 2020-06-28 2020-06-28 Outpatient SLEH [facility] [id number] [facility] 00:00:00 00:00:00 2020-06-24 2020-06-24 Outpatient Reyesel_T VFP VFP [id number] [address] [place] [address] 05:24:00 05:24:00 [id number] Family Practic e 2020-06-16 2020-06-16 Outpatient Daniel_T VFP VFP [id number] [address] [place] [address] 03:33:00 03:33:00 [id number] Family Practic e 2020-06-16 2020-06-16 Abiodun VFP [place] - [id number] V illage 00:00:00 00:00:00 [facility] Family DelgadoLinus - Amy chun MD: [id number] VM_RIGOBERTO_Tyd e [facility], [address] [address] , Ph. 2020-06-15 2020-06-15 Outpatient Daniel_T VFP VFP [id number] 11-21 [facility] 05:36:00 05:36:00 [id number] Family Practic e 2020-05-03 2020-05-03 Outpatient Reyesel_T VFP VFP [id number] 11-21 [facility] 09:54:00 09:54:00 Family Practic e 2020-03-29 2020-03-29 Outpatient Reyesel_T VFP VFP [id number] 11-21 [facility] 02:02:00 02:02:00 [id number] Family Practic e 2020-03-22 2020-03-22 Outpatient Reyesel_T VFP VFP [id number] 11-21 [facility] 04:23:00 04:23:00 [id number] Family Practic e 2020-03-22 2020-03-22 Abiodun VFP [place] - [id number] V illage 00:00:00 00:00:00 Jamilahpatricia [facility] Family DelgadoLinus - Amy chun MD: [id number] VM_HOU_Dani e [facility], [address], [place] [address] , Ph. 2017-11-07 2017-11-07 [facility] 14 [id number] [facility] 15:15:00 15:15:00 [facility] Results Test Description Test Time Test Comments Results Result Comments Source Hemoglobin A1c measurement device panel 2023-01-24 13:56:21 Test Item Value Reference Range Interpretation Comme nts Hemoglobin A1c/Hemoglobin.total in Blood (test code = 4548-4) 6.6 % 4.0-6.4 [facility] [id number] 13:45:55 Test Item Value Reference Range Interpretation Comments Blood Glucose: mg/dl (test code = Blood 186 Glucose: mg/dl) [facility] [id number] 13:36:14 Test Item Value Reference Range Interpretation Comments Hemoglobin A1c/Hemoglobin.total in 6.5 % 5.7-6.4 Blood (test code = 4548-4) [facility] [id number] 13:36:14 Test Item Value Reference Range Interpretation Comments Hemoglobin A1c/Hemoglobin.total in 6.5 % 5.7-6.4 Blood (test code = 4548-4) [facility] [[facility]] in Capillary [id number] 13:36:05 Test Item Value Reference Range Interpretation Comments Blood Glucose: mg/dl (test code = Blood 158 Glucose: mg/dl) [facility] [[facility]/volume] in Capillary [id number] 13:36:05 Test Item Value Reference Range Interpretation Comments Blood Glucose: mg/dl (test code = Blood 158 Glucose: mg/dl) [facility] device [id number] 13:57:23 Test Item Value Reference Range Interpretation Comments Hemoglobin A1C Fingerstick: (test code 6.9 = Hemoglobin A1C Fingerstick:) [facility] [[facility]/volume] in Capillary [id number] 13:57:14 Test Item Value Reference Range Interpretation Comments Blood Glucose: mg/dl (test code = Blood 230 Glucose: mg/dl) [facility] [id number] 13:19:10 Test Item Value Reference Range Interpretation Comments Hemoglobin A1C Fingerstick: (test code 7.1 = Hemoglobin A1C Fingerstick:) [facility] [[facility]/volume] in Capillary [id number] 13:16:10 Test Item Value Reference Range Interpretation Comments Blood Glucose: mg/dl (test code = Blood 196 Glucose: mg/dl) [facility] [id number] 11:14:00 Test Item Value Reference Range Interpretation Comments GLUCOSE BEDSIDE TESTING (test code 212 mg/dL 70-110 H = GLUBED) GLUCOSE BEDSIDE [id number] 11:02:00 Test Item Value Reference Range Interpretation Comments GLUCOSE BEDSIDE TESTING (test code 165 mg/dL 70-110 H = GLUBED) BASIC METABOLIC [id number] 15:58:00 Test Item Value Reference Range Interpretation Comments SODIUM (test code = NA) 137 mmol/L 134-147 N POTASSIUM (test code = 3.8 mmol/L 3.4-5.0 N K) CHLORIDE (test code = 104 mmol/L 100-108 N CL) CARBON DIOXIDE (test 28 mmol/L 21-32 N code = CO2) ANION GAP (test code = 5.0 GAP calc 4.0-15.0 N GAP) GLUCOSE (test code = 212 MG/DL 70-110 H GLU) BLOOD UREA NITROGEN 28 MG/DL 7-18 H (test code = BUN) GLOMERULAR FILTRATION >=60 max estimate >60 RATE (test code = GFR) estGFR CREATININE (test code = 0.7 MG/DL 0.6-1.0 N CREAT) CALCIUM (test code = CA) 9.5 MG/DL 8.5-10.1 N COVID 19 INHOUSE [id number] 15:47:00 Test Item Value Reference Range Interpretation Comments COVID 19 INHOUSE AG NEGATIVE Negative Per manu facturer, (test code = negative result s should [id number]) be treated aspr esumptive and, if inconsi stent with clinical signs andsymptoms or necessary for patient man agement, should betested with an alternative mol ecular assay. Negative resultsdo not preclude SA RS-CoV-2 infection and s hould not be usedas the s ole basis for patient man agement decisions. Nega tive results should be considered in t he context of apatient's r ecent exposures, hist ory, presence of cli nicalsigns and symptoms co nsistent with COVID-19. PROTHROMBIN [id number] 15:45:00 Test Item Value Reference Range Interpretation Comments PT PATIENT (test 11.1 SECONDS 9.3-12.9 N code = PTP) INTERNATIONAL NORMAL 0.99 INR Unit 0.8-1.2 N TARGE T INR BY RATIO (test code = INDICATIO N Indication INR) INR1. Prophylax is of venous thrombos is 2.0 - 3.0 (orthoped ic surgery), Proph ylaxis of venous throm bosis (other than hig h-risk surgery), Treat ment of Deep Vein Thrombosis/Pulm onary Embolism, Preve ntion of systemic emb olism - Tissue heart va lves, Acute Myocardia l Infarction (to prevent systemic emboli sm), Valvular heart disease, Acute Myocardial Infa rction (to prevent sys temic embolism), Valv ular heart disease, Atrial Fibrillation, Bileaflet mecha nical valve in aortic position.2. Mec hanical prosthetic valv es (high risk), 2. 5 - 3.5 Presence of Lup us Anticoagulant o r Antiphospholipi d Antibodies, Pre vention of systemic emb olism - Acute Myocardia l Infarction (to prevent recurrent infar ct). THROMBOPLASTIN TIME [id number] 15:45:00 Test Item Value Reference Range Interpretation Comments THROMBOPLASTIN TIME PARTIAL 35.9 SECONDS 26-35 H (test code = PTT) CBC W/AUTO [id number] 15:36:00 Test Item Value Reference Range Interpretation Comments WHITE BLOOD CELL (test code = 4.2 K/mm3 3.5-11.0 N WBC) RED BLOOD CELL (test code = 5.36 M/mm3 4.70-6.10 N RBC) HEMOGLOBIN (test code = HGB) 15.5 G/DL 10.4-14.9 H HEMATOCRIT (test code = HCT) 45.8 % 31.5-44.1 H MEAN CELL VOLUME (test code = 85.4 Fl 84.5-98.6 N MCV) MEAN CELL HGB (test code = MCH) 28.9 pg 27.0-34.2 N MEAN CELL HGB CONCETRATION 33.8 G/DL 31.5-34.0 N (test code = MCHC) RED CELL DISTRIBUTION WIDTH 13.3 SD 11.5-14.5 N (test code = RDW) PLATELET COUNT (test code = 243 K/mm3 150-450 N PLT) MEAN PLATELET VOLUME (test code 9.60 fL 7.0-10.5 N = MPV) NEUTROPHIL % (test code = NT%) 65.4 % 40-76 N IMMATURE GRANULOCYTE % (test 0.2 % 0.0-5.0 N code = IG%) LYMPHOCYTE % (test code = LY%) 23.4 % 20.5-51.1 N MONOCYTE % (test code = MO%) 8.9 % 1.7-9.3 N EOSINOPHIL % (test code = EO%) 1.4 % 0.0-6.0 N BASOPHIL % (test code = BA%) 0.7 % 0.0-2.0 N NUCLEATED RBC % (test code = 0.0 /100WBC% 0.0-1.0 N NRBC%) NEUTROPHIL # (test code = NT#) 2.7 K/mm3 1.8-7.6 N IMMATURE GRANULOCYTE # (test 0.01 x10 3/uL 0.00-0.03 N code = IG#) LYMPHOCYTE # (test code = LY#) 1.0 K/mm3 0.6-3.2 N MONOCYTE # (test code = MO#) 0.4 K/mm3 0.3-1.1 N EOSINOPHIL # (test code = EO#) 0.1 K/mm3 0.0-0.4 N BASOPHIL # (test code = BA#) 0.0 K/mm3 0.0-0.1 N NUCLEATED RBC # (test code = 0.0 K/mm3 0.0-0.1 N NRBC#) MANUAL DIFF REQUIRED (test code NO DIFF/SCN CRITERIA = MDIFF) URINALYSIS [id number] 15:34:00 Test Item Value Reference Range Interpretation Comments UA GLUCOSE DIPSTICK (test 3+ mg/dL NEG code = DGLUU) UA BILIRUBIN DIPSTICK (test NEGATIVE mg/dL NEG code = BILU) UA KETONE DIPSTICK (test NEGATIVE mg/dL NEG code = KETU) UA SPECIFIC GRAVITY (test 1.020 SG 1.005-1.030 code = SGU) UA BLOOD DIPSTICK (test NEGATIVE mg/DL NEG code = JOSÉ MIGUEL) UA PH DIPSTICK (test code = 6.0 pH UNITS 5.0-7.0 CORBY) UA PROTEIN DIPSTICK (test NEGATIVE mg/dL NEG code = PROU) UA UROBILINIOGEN DIPSTICK 0.2 mg/dL <2.0 (test code = URO) UA NITRITE DIPSTICK (test NEGATIVE SCREEN NEG code = BASIL) UA LEUKOCYTE ESTERASE NEGATIVE Leuk/mcL NEGATIVE DIPSTICK (test code = LEUU) Urine Specimen Type: Clean Catch- XR CHEST 2 [id number] 15:30:00 [facility] 1950 Sex: F Name:ARVIN DOZIER [facility] : 1950 Age/S: 70 / F [id number] Unit #: [id number] Loc: [place] [address] Phys: Lula Chapman MD Acct: [id number] Dis Date: Status: PRE SDCPHONE #: [phone] Exam Date: 06/07/2021 1525 FAX #: Reason: SURGERY EXAMS: CPT: [id number] XR CHEST 2 V [id number] Fluoro Time: DAP (Gy m2): Air Kerma (mGy): STUDY: Chest radiograph HISTORY: Surgery COMPARISON: 10/25/2020 TECHNIQUE: Frontal and lateral views of the chest. SITE: H19 FINDINGS: The cardiacsilhouette is unremarkable. The aorta is atherosclerotic. The lungs are hyperaerated suggestive of COPD. There is no focal consolidation, pleural effusion, or pneumothorax. No acute osseous abnormalities are identified. IMPRESSION: No radiographic evidence for acute pulmonary abnormality. at 1530 Reported and signed by: Black Maravilla M.D. CC: Lula Chapman MD PAGE 1 Signed Report Name: ARVIN DOZIER [facility] : 1950 Age/S: 70 / F [id number] [place] [address] Unit #: [id number] Loc: [place] [address] Phys: Lula Chapman MD Acct: [id number] Dis Date: Status: PRE SDC PHONE #: [phone] Exam Date: 06/07/2021 1525 FAX #: Reason: SURGERY EXAMS: CPT: [id number] XR CHEST 2 V [id number] Fluoro Time: DAP (Gy m2): AirKerma (mGy): <Continued> Technologist: An Bernard, RT(R) Trnscb Date/Time: 06/07/2021 (1530) [id number] Orig Print D/T: S: 06/07/2021 (2593) PAGE 2 Signed ReportGlucose [Mass/volume] in Capillary [id number] 11:34:44 Test Item Value Reference Range Interpretation Comments Blood Glucose: mg/dl (test code = Blood 121 Glucose: mg/dl) [facility] macro (dipstick) panel - [id number] 12:06:10 Test Item Value Reference Range Interpretation Comments Color Color (test code = Color yellow Color) Color Appearance (test code = Color clear Appearance) Color Glucose (test code = Color 1000 Glucose) Color Bilirubin (test code = Color negative Bilirubin) Color Ketones (test code = Color negative Ketones) Color Specific [place] (test code = 1.020 Color Specific [place]) Color Blood (test code = Color negative Blood) Color PH (test code = Color PH) 7.0 Color Protein (test code = Color negative Protein) Color Urobilinogen (test code = 0.2 Color Urobilinogen) Color Nitrites (test code = Color negative Nitrites) Color Leukocytes (test code = Color negative Leukocytes) [facility] macro (dipstick) panel - [id number] 12:06:10 Test Item Value Reference Range Interpretation Comments Color Color (test code = Color yellow Color) Color Appearance (test code = Color clear Appearance) Color Glucose (test code = Color 1000 Glucose) Color Bilirubin (test code = Color negative Bilirubin) Color Ketones (test code = Color negative Ketones) Color Specific [place] (test code = 1.020 Color Specific [place]) Color Blood (test code = Color negative Blood) Color PH (test code = Color PH) 7.0 Color Protein (test code = Color negative Protein) Color Urobilinogen (test code = 0.2 Color Urobilinogen) Color Nitrites (test code = Color negative Nitrites) Color Leukocytes (test code = Color negative Leukocytes) [facility] 1995 panel - Serum or [id number] 15:34:00 Test Item Value Reference Range Interpretation Comments cholesterol, total 143 mg/dL <200 (test code = cholesterol, total) HDL cholesterol (test 44 mg/dL See_Comment L [Auto mated code = HDL message] The sy stem cholesterol) which generated this result transmitted reference range : > or = 50. The reference range was not used to interpret this result as normal/abnormal . triglycerides (test 71 mg/dL <150 code = triglycerides) Cholesterol in LDL 84 mg/dL [Mass/volume] in Serum (calc) or Plasma (test code = 2089-1) chol/HDLC ratio (test 3.3 (calc) <5.0 code = chol/HDLC ratio) non HDL cholesterol 99 mg/dL <130 (test code = non HDL (calc) cholesterol) [facility]Creatinine [Mass Ratio] in [id number] 15:34:00 Test Item Value Reference Range Interpretation Comments creatinine, random urine (test 96 mg/dL 20-275 code = creatinine, random urine) albumin, urine (test code = 0.5 mg/dL see note: albumin, urine) albumin/creatinine ratio, 5 mcg/mg creat <30 random urine (test code = albumin/creatinine ratio, random urine) [facility] 2000 panel - Serum or Plasma 2020-12-10 15:34:00 Test Item Value Reference Range Interpretation Comments glucose (test code 155 mg/dL 65-99 H = glucose) urea nitrogen (BUN) 19 mg/dL 7-25 (test code = urea nitrogen (BUN)) creatinine (test 0.84 mg/dL 0.60-0.93 code = creatinine) eGFR non-afr. 70 mL/min/1.73m2 See_Comment [Automate d [place] (test code message] The = eGFR non-afr. system which [place]) generated this result transmit alicia reference range : > or = 60. The reference range was not used to interpret this result as normal/abnormal . eGFR 81 mL/min/1.73m2 See_Comment [Automated [place] (test code message] The = eGFR system which [place]) generated this result transmit alicia reference range : > or = 60. The reference range was not used to interpret this result as normal/abnormal . BUN/creatinine not applicable 6-22 ratio (test code = BUN/creatinine ratio) sodium (test code = 138 mmol/L 135-146 sodium) potassium (test 4.1 mmol/L 3.5-5.3 code = potassium) chloride (test code 101 mmol/L 98-110 = chloride) carbon dioxide 28 mmol/L 20-32 (test code = carbon dioxide) calcium (test code 9.9 mg/dL 8.6-10.4 = calcium) protein, total 6.7 g/dL 6.1-8.1 (test code = protein, total) albumin (test code 4.6 g/dL 3.6-5.1 = albumin) globulin (test code 2.1 g/dL (calc) 1.9-3.7 = globulin) albumin/globulin 2.2 (calc) 1.0-2.5 ratio (test code = albumin/globulin ratio) bilirubin, total 0.6 mg/dL 0.2-1.2 (test code = bilirubin, total) alkaline 27 U/L 37-153 L phosphatase (test code = alkaline phosphatase) AST (test code = 23 U/L 10-35 AST) ALT (test code = 16 U/L 6-29 ALT) [facility] Auto Differential panel - [id number] 15:34:00 Test Item Value Reference Range Interpretation Comments white blood cell count (test 3.2 thousand/uL 3.8-10.8 L code = white blood cell count) red blood cell count (test 5.57 million/uL 3.80-5.10 H code = red blood cell count) hemoglobin (test code = 15.3 g/dL 11.7-15.5 hemoglobin) hematocrit (test code = 45.8 % 35.0-45.0 H hematocrit) MCV (test code = MCV) 82.2 fL 80.0-100.0 MCH (test code = MCH) 27.5 pg 27.0-33.0 MCHC (test code = MCHC) 33.4 g/dL 32.0-36.0 RDW (test code = RDW) 13.2 % 11.0-15.0 platelet count (test code = 250 thousand/uL 140-400 platelet count) MPV (test code = MPV) 9.6 fL 7.5-12.5 absolute neutrophils (test 1446 cells/uL 6640-6934 L code = absolute neutrophils) absolute lymphocytes (test 1091 cells/uL 850-3900 code = absolute lymphocytes) absolute monocytes (test code 480 cells/uL 200-950 = absolute monocytes) absolute eosinophils (test 141 cells/uL 15-500 code = absolute eosinophils) absolute basophils (test code 42 cells/uL 0-200 = absolute basophils) neutrophils (test code = 45.2 % neutrophils) lymphocytes (test code = 34.1 % lymphocytes) monocytes (test code = 15.0 % monocytes) eosinophils (test code = 4.4 % eosinophils) basophils (test code = 1.3 % basophils) [facility] (T4) free [Mass/volume] in Serum or Plasma 2020-12-10 15:34:00 Test Item Value Reference Range Interpretation Comments T4, free (test code = T4, free) 1.8 NG/dL 0.8-1.8 [facility]yrotropin [Units/volume] in Serum or [id number] 15:34:00 Test Item Value Reference Range Interpretation Comments TSH (test code = TSH) 0.57 mIU/L 0.40-4.50 [facility]PROT[facility] [id number] 13:32:00 Test Item Value Reference Range Interpretation Comments PROTHROMBIN TIME 12.4 SECONDS 9.3-12.9 N PATIENT (test code = PTP) INTERNATIONAL NORMAL 1.1 0.8-1.2 N TARGET INR BY RATIO (test code = INDICATIO N Indication INR) INR1. Prophylax is of venous thrombos is 2.0 - 3.0 (orthoped ic surgery), Proph ylaxis of venous throm bosis (other than hig h-risk surgery), Treat ment of Deep Vein Thrombosis/Pulm onary Embolism, Preve ntion of systemic emb olism - Tissue heart va lves, Acute Myocardia l Infarction (to prevent systemic emboli sm), Valvular heart disease, Atrial Fibrillation, Bileaflet mecha nical valve in aortic position.2. Mec hanical prosthetic valv es (high risk), 2. 5 - 3.5 Presence of Lup us Anticoagulant o r Antiphospholipi d Antibodies, Pre vention of systemic emb olism - Acute Myocardia l Infarction (to prevent recurrent infar ct). BASIC METABOLIC [id number] 13:31:00 Test Item Value Reference Range Interpretation Comments SODIUM (test code = NA) 142 mEq/L 134-147 N POTASSIUM (test code = 3.9 mEq/L 3.4-5.0 N K) CHLORIDE (test code = 106 mEq/L 100-108 N CL) CARBON DIOXIDE (test 29 mEq/l 21-33 N code = CO2) ANION GAP (test code = 11 0-20 N GAP) GLUCOSE (test code = 187 mg/dL 70-110 H GLU) BLOOD UREA NITROGEN 14 mg/dL 7-18 N (test code = BUN) GLOMERULAR FILTRATION 70.9 70-80 N Units of measure = RATE (test code = GFR) ml/mi n/1.73 m2 CREATININE (test code = 0.8 mg/dL 0.6-1.3 N CREAT) CALCIUM (test code = 9.5 mg/dL 8.0-10.5 N CA) CBC W/AUTO [id number] 13:26:00 Test Item Value Reference Range Interpretation Comments WHITE BLOOD CELL (test code = 3.4 x10 3/uL 4.5-11.0 L WBC) RED BLOOD CELL (test code = 5.14 x10 6/uL 3.54-5.02 H RBC) HEMOGLOBIN (test code = HGB) 14.5 g/dL 11.0-15.0 N HEMATOCRIT (test code = HCT) 43.1 % 33.0-45.0 N MEAN CELL VOLUME (test code = 83.9 fL 81.0-99.0 N MCV) MEAN CELL HGB (test code = MCH) 28.2 pg 27.0-33.0 N MEAN CELL HGB CONCETRATION 33.6 g/dL 33.0-37.0 N (test code = MCHC) RED CELL DISTRIBUTION WIDTH CV 12.9 % 11.5-14.5 N (test code = RDW) RED CELL DISTRIBUTION WIDTH SD 39.4 fL 37.0-54.0 N (test code = RDW-SD) PLATELET COUNT (test code = 217 x10 3/uL 150-400 N PLT) MEAN PLATELET VOLUME (test code 9.3 fL 7.0-9.0 H = MPV) NEUTROPHIL % (test code = NT%) 62.2 % 56.0-77.0 N IMMATURE GRANULOCYTE % (test 0.3 % 0.0-2.0 N code = IG%) LYMPHOCYTE % (test code = LY%) 23.9 % 14.0-32.0 N MONOCYTE % (test code = MO%) 11.8 % 4.8-9.0 H EOSINOPHIL % (test code = EO%) 0.9 % 0.3-3.7 N BASOPHIL % (test code = BA%) 0.9 % 0.0-2.0 N NUCLEATED RBC % (test code = 0.0 % 0-0 N NRBC%) NEUTROPHIL # (test code = NT#) 2.11 x10 3/uL 2.0-7.6 N IMMATURE GRANULOCYTE # (test 0.01 x10 3/uL 0.00-0.03 N code = IG#) LYMPHOCYTE # (test code = LY#) 0.81 x10 3/uL 1.0-3.8 L MONOCYTE # (test code = MO#) 0.40 x10 3/uL 0.1-0.8 N EOSINOPHIL # (test code = EO#) 0.03 x10 3/uL 0.0-0.2 N BASOPHIL # (test code = BA#) 0.03 x10 3/uL 0.0-0.2 N NUCLEATED RBC # (test code = 0.00 x10 3/uL 0.0-0.1 N NRBC#) MANUAL DIFF REQUIRED (test code NO = MDIFF) - XR CHEST 2 [id number] 12:59:00 [facility] : 1950 Sex: F FAX: Dandy Parks MD [phone] [place]: St: PRE Name: ARVIN DOZIER [facility] : 1950 Age/S: 69/F [address] [place] [address] Unit #: [id number] Loc: [place] [address] Phys: Dandy Gardner MD Acct: [id number] Dis Date: Status: PRE SDC PHONE #: [phone] Exam Date: 10/25/20201250 FAX #: [phone] Reason: [facility] EXAMS: CPT CODE: [id number] XR CHEST 2 V [id number] EXAM: XR CHEST 2 VIEWS DATE: 10/25/2020 12:10 PM : 1950; Age: 69 years y/o Female INDICATION: Abnormal stress test, coronary arterydisease, [facility] COMPARISON: None. TECHNIQUE: PA and lateral chest radiographs. FINDINGS: Lines, tubes and hardware: None. Lungs and pleura: The lungs are clear. No pleural effusion. Heart and mediastinum: The heart size is normal for technique. Vascular calcifications are present at the aorta. Pulmonaryvascularity is normal. IMPRESSION: No acute cardiopulmonary process. SL: [id number] [employer] Signed by Maximo Carcamo on 10/25/2020 at 1463 Reported and signed by: Sienna Carcamo D.O. CC: Dandy Gardner MD Technologist: RT Dalton(Shelley) Trnscrd Date/Time/By: 10/25/2020 (6582) : By: [email or web address] Orig Print D/T: S: 10/25/2020 (5475) PAGE 1 Signed Report
[2023-04-08] MEDS ORDERED: IBUPROFEN 400 MG TAB ONE (10:47)
--- NOTE | 2023-04-08 12:09 | RAD REPORT ---
EXAM DESCRIPTION: Ribs Right - 04/08/2023 11:23 am CLINICAL HISTORY: RIB PAIN - RIGHT COMPARISON: Chest Pa And Lat (2 Views) dated 01/07/2021 TECHNIQUE: Right ribs, 3 views. FINDINGS: No displaced rib fracture is evident. No aggressive rib lesion. No underlying pneumothorax, effusion, infiltrate or pulmonary contusion. IMPRESSION: Negative right rib series.
--- NOTE | 2023-04-08 12:17 | EDPHYS ---
Physician Documentation [facility] Name: Whitley Arguello Age: 72 yrs Sex: Female : 1950 Arrival Date: 04/08/2023 Time: 10:15 Bed 13 Private MD: Vicente Fuentes E ED Physician Ramon Katz HPI: 04/08 10:28 This 72 yrs old Female presents to ER via Ambulatory with complaints of Fall Injury. jh7 10:28 Details of fall: The patient fell from an upright position, while walking. Onset: The jh7 symptoms/episode began/occurred last night. Associated injuries: The patient sustained right ribs, contusion, painful injury. 72-year-old female presents to the ER after a fall occurring last night. The patient states that she tripped on a dog toy and that her right side hit the fireplace. Currently complains of right rib pain. History of diabetes.. Historical: - Allergies: 10:28 Codeine; kc6 10:28 PENICILLINS; kc6 10:28 TETRACYCLINES; kc6 - PMHx: 10:28 NIDDM; kc6 - PSHx: 10:28 Cholecystectomy; kc6 - Immunization history:: Adult Immunizations up to date. - Social history:: Smoking status: Patient denies any tobacco usage or history of. ROS: 10:28 Constitutional: Negative for fever, chills, and weight loss, ENT: Negative for injury, jh7 pain, and discharge, Neck: Negative for injury, pain, and swelling, Respiratory: Negative for shortness of breath, cough, wheezing, and pleuritic chest pain, Abdomen/GI: Negative for abdominal pain, nausea, vomiting, diarrhea, and constipation, MS/Extremity: Negative for injury and deformity, Skin: Negative for injury, rash, and discoloration, Neuro: Negative for headache, weakness, numbness, tingling, and seizure, 10:28 Cardiovascular: Positive for Right rib pain, Negative for chest pain, 10:28 All other systems are negative, Exam: 10:28 Constitutional: This is a well developed, well nourished patient who is awake, alert, jh7 and in no acute distress. Head/Face: Normocephalic, atraumatic. Neck: Trachea midline, no thyromegaly or masses palpated, and no cervical lymphadenopathy. Supple, full range of motion without nuchal rigidity, or vertebral point tenderness. No Meningismus. Cardiovascular: Regular rate and rhythm with a normal S1 and S2. No gallops, murmurs, or rubs. Normal PMI, no JVD. No pulse deficits. Respiratory: Lungs have equal breath sounds bilaterally, clear to auscultation and percussion. No rales, rhonchi or wheezes noted. No increased work of breathing, no retractions or nasal flaring. Back: No spinal tenderness. No costovertebral tenderness. Full range of motion. Skin: Warm, dry with normal turgor. Normal color with no rashes, no lesions, and no evidence of cellulitis. MS/ Extremity: Pulses equal, no cyanosis. Neurovascular intact. Full, normal range of motion. Neuro: Awake and alert, GCS 15, oriented to person, place, time, and situation. Motor strength 5/5 in all extremities. Sensory grossly intact. Normal gait. 10:28 Chest/axilla: Inspection: ecchymosis, that is mild, of the right lateral posterior chest and right lateral anterior chest Palpation: tenderness, that is mild, of the right lateral/posterior ribs, that totally reproduces the patient's complaints, Vital Signs: 10:26 BP 146 / 95; Pulse 93; Resp 18 S; Temp 98.2(O); Pulse Ox 99% on R/A; Weight 53.07 kg kc6 (R); Height 5 ft. 2 in. (R); Pain 8/10; 11:20 BP 125 / 69; Pulse 84; Resp 16 S; Pulse Ox 98% on R/A; kc6 13:01 BP 141 / 75; Pulse 79; Resp 16 S; Pulse Ox 100% on R/A; kc6 10:26 Body Mass Index 21.40 (53.07 kg, 157.48 cm) [facility] 10:26 Pain Scale: Adult kc6 MDM: 10:[address] [facility] 12:15 Differential diagnosis: contusion, fracture. Data reviewed: vital signs, nurses notes. [facility] I considered the following discharge prescriptions or medication management in the emergency department Medications were administered in the Emergency Department. See MAR. Counseling: I had a detailed discussion with the patient and/or guardian regarding the historical points, exam findings, and any diagnostic results supporting the discharge/admit diagnosis, to return to the emergency department if symptoms worsen or persist or if there are any questions or concerns that arise at home. Response to treatment: the patient's symptoms have markedly improved after treatment. 04/08 10:28 Order name: DAVID Ribs RIGHT; Complete Time: 12:11 [facility] Administered Medications: 10:35 Drug: Ibuprofen PO 400 mg PO once Route: PO; kc6 11:20 Follow up: Response: No adverse reaction; Pain is decreased kc6 13:01 Follow up: Response: No adverse reaction; Pain is decreased kc6 Point of Care Testing: Blood Glucose: 10:28 Blood Glucose: 162 mg/dL; kc6 10:28 via pts dexcom kc6 Ranges: Critical Glucose Levels:Adult <50 mg/dl or >400 mg/dl <40 mg/dl or >180 mg/dl Disposition: 04/09 09:03 Co-signature as Attending Physician, Ramon Katz MD I reviewed the patient's care rn provided by the Advanced Practice Provider and agree with the diagnosis and treatment plan. Disposition Summary: 04/08/23 12:17 Discharge Ordered Notes: Location: Home [facility] Problem: [facility] Symptoms: have improved [facility] Condition: Stable [facility] Diagnosis - Right Rib Contusion [facility] Followup: [facility] - With: Vicente Fuentes MD - When: 2 - 3 days - Reason: Recheck today's complaints Discharge Instructions: - Discharge Summary Sheet [facility] - Rib Contusion [facility] Forms: - Medication Reconciliation Form [facility] - Thank You Letter [facility] - Patient Portal Instructions [facility] - Leadership Thank You Letter [facility] Prescriptions: - Ibuprofen 600 mg Oral tablet - take 1 tablet ORAL route every 8 hours As needed take with food; 30 tablet; [facility] Refills: 0, Product Selection Permitted Signatures: Dispatcher [employer] Ramon Sy MD MD rn Hadash, Jennifer, FNP FNP [facility] Nunu Varela RN RN kc6
--- NOTE | 2023-04-08 12:17 | ER ---
Nurse's Notes [facility] Name: Whitley Arguello Age: 72 yrs Sex: Female : 1950 Arrival Date: 04/08/2023 Time: 10:15 Bed 13 Private MD: Vicente Fuentes E Diagnosis: Right Rib Contusion Presentation: 04/08 10:26 Chief complaint: Patient states: she tripped and fell on a dog toy late last night in kc6 the dark. pt reports falling on the fireplace onto her right side. denies LOC. reports 8/10 right lower back and leg pain. Coronavirus screen: At this time, the client does not indicate any symptoms associated with coronavirus-19. Ebola Screen: No symptoms or risks identified at this time. Initial Sepsis Screen: Does the patient meet any 2 criteria? No. Patient's initial sepsis screen is negative. Does the patient have a suspected source of infection? No. Patient's initial sepsis screen is negative. Risk Assessment: Do you want to hurt yourself or someone else? Patient reports no desire to harm self or others. Onset of symptoms was April 08, 2023. 10:26 Method Of Arrival: Ambulatory [facility] 10:26 Acuity: CHARLIE 4 kc6 Triage Assessment: 10:28 General: Appears in no apparent distress. comfortable, Behavior is calm, cooperative, kc6 appropriate for age. Pain: Complains of pain in right low back and right leg. EENT: No signs and/or symptoms were reported regarding the EENT system. Neuro: Level of Consciousness is awake, alert, obeys commands, Oriented to person, place, time, situation, Appropriate for age. Cardiovascular: Capillary refill < 3 seconds. Respiratory: Airway is patent Trachea midline Respiratory effort is even, unlabored, Respiratory pattern is regular, symmetrical. GI: No signs and/or symptoms were reported involving the gastrointestinal system. : No signs and/or symptoms were reported regarding the genitourinary system. Derm: No signs and/or symptoms reported regarding the dermatologic system. Skin is intact, is healthy with good turgor, Skin is pink, warm \T\ dry. Musculoskeletal: No signs and/or symptoms reported regarding the musculoskeletal system. Circulation, motion, and sensation intact. Capillary refill < 3 seconds, Range of motion: intact in all extremities. Historical: - Allergies: 10:28 Codeine; kc6 10:28 PENICILLINS; kc6 10:28 TETRACYCLINES; kc6 - PMHx: 10:28 NIDDM; kc6 - PSHx: 10:28 Cholecystectomy; kc6 - Immunization history:: Adult Immunizations up to date. - Social history:: Smoking status: Patient denies any tobacco usage or history of. Screenin:29 [facility] ED Fall Risk Assessment (Adult) History of falling in the last 3 months, [facility] including since admission Yes- single mechanical fall (1 pt) Confusion or Disorientation No (0 pts) Intoxicated or Sedated No (0 pts) Impaired Gait No (0 pts) Mobility Assist Device Used No (0 pt) Altered Elimination No (0 pt) Score/Fall Risk Level 0 - 2 = Low Risk. Abuse screen: Denies threats or abuse. Denies injuries from another. Nutritional screening: No deficits noted. Tuberculosis screening: No symptoms or risk factors identified. Assessment: 10:29 Reassessment: please see triage assessment. kc 11:20 Reassessment: Patient appears in no apparent distress at this time. No changes from [facility] previously documented assessment. Patient and/or family updated on plan of care and expected duration. Pain level reassessed. Patient is alert, oriented x 3, equal unlabored respirations, skin warm/dry/pink. 12:20 Reassessment: Patient appears in no apparent distress at this time. No changes from [facility] previously documented assessment. Patient and/or family updated on plan of care and expected duration. Pain level reassessed. Patient is alert, oriented x 3, equal unlabored respirations, skin warm/dry/pink. Vital Signs: 10:26 BP 146 / 95; Pulse 93; Resp 18 S; Temp 98.2(O); Pulse Ox 99% on R/A; Weight 53.07 kg kc6 (R); Height 5 ft. 2 in. (R); Pain 8/10; 11:20 BP 125 / 69; Pulse 84; Resp 16 S; Pulse Ox 98% on R/A; kc6 13:01 BP 141 / 75; Pulse 79; Resp 16 S; Pulse Ox 100% on R/A; kc6 10:26 Body Mass Index 21.40 (53.07 kg, 157.48 cm) [facility] 10:26 Pain Scale: Adult kc6 ED Course: 10:17 Patient arrived in ED. mr 10:17 Vicente Fuentes MD is Private Physician. mr 10:18 Nunu Varela RN is Primary Nurse. kc6 10:19 [facility] Pugh F[facility]. jh7 10:19 Ramon Katz MD is Attending Physician. jh7 10:28 Triage completed. kc6 10:28 Arm band placed on. kc6 10:29 Patient has correct armband on for positive identification. Bed in low position. Call kc6 light in reach. Side rails up X 1. Client placed on continuous cardiac and pulse oximetry monitoring. NIBP monitoring applied. 11:25 XRAY Ribs RIGHT In Process Unspecified. EDMS 12:16 Vicente Fuentes MD is Referral Physician. 7 13:02 No provider procedures requiring assistance completed. Patient did not have IV access kc6 during this emergency room visit. Administered Medications: 10:35 Drug: Ibuprofen PO 400 mg PO once Route: PO; kc6 11:20 Follow up: Response: No adverse reaction; Pain is decreased kc6 13:01 Follow up: Response: No adverse reaction; Pain is decreased kc6 Medication: 13:02 VIS not applicable for this client. kc6 Point of Care Testing: Blood Glucose: 10:28 Blood Glucose: 162 mg/dL; kc6 10:28 via pts dexcom kc6 Ranges: Outcome: 12:17 Discharge ordered by . jh7 13:02 Discharged to home ambulatory, kc6 13:02 Condition: good 13:02 Discharge instructions given to patient, Instructed on discharge instructions, follow up and referral plans. medication usage, Demonstrated understanding of instructions, follow-up care, medications, Prescriptions given X 1, 13:02 Patient left the ED. kc6 Signatures: Dispatcher [employer] EDNH Sherrie Rosales, Reg Reg mr Mary Pugh FNP DRUG ABUSE PROGRAM COORDINATOR [facility] Nunu Varela RN RN kc6
[2023-04-08 13:06] VITALS: TEMP 98.2
[2023-04-08 13:09] VITALS: BP 141/75; O2SAT 100
[2023-04-08] MEDS ORDERED: KETOROLAC 30 MG/ML INJ ONE (13:31)
[2023-04-08] MEDS ORDERED: CYCLOBENZAPRINE 10 MG TAB ONE (13:31)
== END 2023-04-08 13:02 | disposition home or self-care (01) ==
LOC: ER 10:15
DX: S20.211A Contusion of right front wall of thorax, initial encounter (principal); E11.9 Type 2 diabetes mellitus without complications; Z88.0 Allergy status to penicillin; Z88.1 Allergy status to other antibiotic agents; Z88.5 Allergy status to narcotic agent
CPT/HCPCS: 99284